=== PATIENT | female | born 1985 | race Caucasian/White ===

== ENCOUNTER 2021-03-02 08:52 | Emergency (ER) | payer BC ==
--- OUTSIDE RECORDS SUMMARY | 2021-03-02 08:55 | XMS REPORT | Continuity of Care Document ---
:1985 Author Organization [facility] t Address [address] [place] [address] Care Team Providers Name Role Phone Provider Primary Care Physician Unavailable Lab, Fam Pob I Attending Clinician Unavailable Jeffry Peña Attending Clinician Jeffry Peña Admitting Clinician Problems Condition Condition Condition Status Onset Resolution Last Treating Co mments Source Name Details Category Date Date Treatment Clinician Date FOLLOW UP Diagnosis Active 2019-04-27 Memoria 04-21 11:02:00 l FOLLOW 00:00: [place] UP 00 Active 9 [facility] OMF Diagnosis Active 2019-04-20 Mem oria 04-16 16:37:00 l OMF 00:00: Aneesh 00 Active 04/16/2019 [facility] FALL Diagnosis Active 2019-04-15 Mem oria 04-15 19:09:00 l FALL 00:00: [place] 00 Active 04/15/2019 [facility] CORNEAL Diagnosis Active 2019-04-16 Me moria ABRASION 04-15 09:33:00 l CORNEAL 00:00: Aneesh ABRASION 00 Active 04/15/2019 [facility] INJ Diagnosis Active 2019-04-16 Mem oria CONJUNCTIV 09:33:00 l A AND INJ [place] CORNEAL CONJUNCTIV ABRASION A AND W/O CORNEAL ABRASION W/O Active [facility] Bipolar Bipolar Problem Active [facility] affective affective [facility] s - disorder, disorder, Aguilar taapn current current l episode episode Outpati mixed, mixed, ent current current Clinics episode episode severity severity unspecifie unspecifie d d Seasonal Seasonal Problem [facility] allergic [facility] - rhinitis, rhinitis, Aguilar tapan unspecifie unspecifie l d trigger d trigger Outp at ent Clinics Dysthymia Dysthymia Problem Active [facility] Clinics Attention- Attention- Problem Active [facility] deficit deficit [facility] hyperactiv [facility], disorder, 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 Abnormal Abnormal Problem Active [facility] thyroid thyroid [facility] - blood test blood test Me moria l [facility] ent Clinics Hyperchole Hyperchole Problem Active [facility] sterolemia sterolemia Essie kes - Memoria l [facility] ent Clinics Lung Lung Problem Active [facility] nodule < nodule < [facility] - 6cm on CT [address] Aguilar tapan l [facility] ent Clinics Pelvic Pelvic Problem Active [facility] fluid fluid [facility] - collection collection Me moria l [facility] ent Clinics Pneumonia Pneumonia Problem Active [facility] due to due to [facility] - infectious infectious [facility] organism, organism, l unspecifie unspecifie Ou tpati d d ent laterality laterality Cl inics , , unspecifie unspecifie d part of d part of lung lung Muscle Muscle Problem Active [facility] tension tension [facility] - headache headache Memori a l [facility] ent Clinics 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 l [facility] Acquired Acquired Problem Active [facility] hypothyroi hypothyroi Essie kes - dism dism Memoria l [facility] Clinics Tobacco Tobacco Problem Active [facility] abuse abuse [facility] - [facility]oria l [facility] Carpal Carpal Problem Active [facility] tunnel tunnel [facility]ukes - 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 [facility] Migraine Migraine Problem Active [facility] without without [facility] - aura and aura and Memori a without without l status status Outpati migrainosu migrainosu en t s, not s, not Clinics intractabl intractabl e e Attention Attention Diagnosis Active [facility] deficit deficit [facility] - disorder, disorder, Aguilar tapan unspecifie unspecifie l d d Outpati hyperactiv hyperactiv en t ity ity Clinics presence presence History of Past Illness Condition Condition Condition Status Onset Resolution Last Treating Co mments Source Name Details Category Date Date Treatment Clinician Date Injury of Problem 2018-2019-04-18 2019-04-18 Memoria conjunctiv 04-15 21:39:44 21:39:44 l a and Injury 17:00: Aneesh corneal of 00 abrasion conjunctiv without a and foreign corneal body, abrasion unspecifie without d eye, foreign initial body, encounter unspecifie d eye, initial encounter 04/15/2019 04/18/2019 [facility] Fracture Problem 2018-2019-04-18 2019-04-18 Memoria of other 04-15 21:39:44 21:39:44 l specified Fracture 17:00: Her barth skull and of other 00 facial specified bones, skull and unspecifie facial d side, bones, initial unspecifie encounter d side, for closed initial fracture encounter for closed fracture 9 04/18/2019 [facility] Allergies, Adverse Reactions, Alerts Allergy Allergy Status Severity Reaction(s) Onset Inactive Treating Comm ents Source Name Type Date Date Clinician Sulfamet Propensi Active Hives 2017-09 [place] hoxazole ty to 0-27 [facility] -Trimeth adverse 00:00: st oprim reaction 00 s to drug penicill penicill Active Memori a ins ins l [place] Bactrim Adverse Active Info Not [facility] Reaction Available [facility] Social History Social Habit Start Date Stop Date Quantity Comments Source Social History 2019-04-16 2019-04-16 [facility] 00:47:43 00:47:43 Sex Assigned At [birth year] [facility] ethodist 00:00:00 00:00:00 Medications Ordered Filled Start Stop Current Ordering Indication Dosage Frequency Signature Comments Components Source Medication Medication Date Date Medication? Clinician (SIG) Name Name Amphetamine Amphetamine 2018-09 Yes Tomás [address] -Dextroamph -Dextroamph 0-04 Romo in the [facility] - et ER et ER 00:00: morning Memoria 00 l [facility] gabapentin Yes 800 mg = 1 M emoria 800 MG Oral 7-24 tab, PO, l Tablet 00:12: TID, # 90 Chicho n 00 tab, 0 Refill(s) Levofloxaci 2018- Yes 750 mg = 1 Memoria n 750 MG 7-23 tab, PO, l Oral Tablet 18:07: Q24H, X 10 Aneesh [Levaquin] 00 day, # 10 tab, 0 Refill(s) Acetaminoph Yes 1 tab, PO, Memoria en 300 MG / -23 Q6H, X 5 l Codeine 18:07: day, # 20 Honey nn Phosphate 00 tab, 0 30 MG Oral Refill(s) Tablet Bacitracin Yes 1 appl, Aguilar tapan 0.5 UNT/MG 23 LEFT EYE, l / Polymyxin 18:07: QID, # 3 He rmann B 10 UNT/MG 00 gm, 0 Ophthalmic Refill(s) Ointment Metronidazo Yes 500 mg = 1 Memoria le 500 MG 7-23 tab, PO, l Oral Tablet 18:07: Q8H, X 10 H ermann [Flagyl] day, # 30 tab, 0 Refill(s) ibuprofen Yes 800 mg = 1 Me moria 800 mg oral 7-23 tab, PO, l tablet 18:07: TID, X 10 Chicho n 00 day, # 30 tab, 0 Refill(s) Adderall XR No 30 mg, Aguilar tapan 23 Route: PO, l 14:00: Drug form: Aneesh 00 ERCAP, Daily, Dosing Weight 97.727, kg, Start date: 04/20/19 9:00:00 CDT, Duration: 30 day, Stop date: 05/19/19 9:00:00 CDT Lexapro No Notes: Memoria 7-23 (Same as: l 14:00: Lexapro) Aneesh Acetaminoph No Notes: Max Memoria en - acetaminop l 13:00: hen 4000 Aneesh 00 mg/day (4 gm/day). (Same as: Tylenol Extra Strength) Thyroxine No Notes: Memori a 7-23 Take 1 l 11:30: hour Aneesh 00 before or 2 hours after meal; Enteral feeds may interefere with the absorption of this medication . (Same as:Synthro id, Levothroid ) Ofirmev No Notes: Memoria 7- Infuse l 23:00: over 15 [place] 00 minutes Do not exceed 4gm/day of acetaminop hen MEDICATION WASTE Product Size: 1000 mg Product Wasted: ___ mg Dexamethaso No Notes: Aguilar tapan ne - Concentrat l 21:00: ion: [place] 00 4mg/ml Motrin No Notes: Memoria 04-19 (Same as: l 19:00: Motrin) "Do Not Crush" Take with food. hydromorpho No Route: IV, Memoria ne (ANES) 04-19 Drug form: l 18:20: INJ, ONCE, Stop date: 04/19/19 13:20:00 CDT glycopyrrol No Route: IV, Memoria ate (ANES) 04-19 Drug form: l 18:13: INJ, ONCE, Stop date: 04/19/19 13:13:00 CDT neostigmine No Route: IV, Memoria (ANES) 04-19 Drug form: l 18:13: INJ, ONCE, Stop date: 04/19/19 13:13:00 CDT Ativan No 2 mg, Memoria 04-19 Route: l 18:05: IVP, Drug form: INJ, ONCE, Dosing Weight 97.727, kg, PRN Anxiety, Start date: 04/19/19 13:05:00 CDT ondansetron No Route: IV, Memoria (ANES) 04-19 Drug form: l 18:03: INJ, ONCE, Stop date: 04/19/19 13:03:00 CDT Dexamethaso No Notes: Aguilar tapan ne 1 MG/ML 04-19 (dexametha l / Neomycin 18:00: sone-neomy H ermann 3.5 MG/ML / 00 carlee-polymy Polymyxin [place] [id number] 5ml SOLN) UNT/ML Shake well Ophthalmic before Suspension use. [Maxitrol] gabapentin No Notes: Memor ia 800 MG Oral 04-19 (Same as: l Tablet 18:00: Neurontin) Clindamycin No Notes: Aguilar tapan - (Same As: l 18:00: Cleocin) Lovenox No Notes: Memoria 7- (Same as: l 17:00: Lovenox) Benadryl No Notes: Memoria - (Same as: l 16:37: Benadryl) Morphine No Notes: Memoria 04-19 (Same l 16:29: as:MORPhin e Sulfate) Tramadol No Notes: Not Mem oria 04-19 to exceed l 16:29: 400mg/day. (Same As: Ultram) Tylenol No Notes: Do Memor ia 04-19 not exceed l 16:29: 4 gm/day. (Same as: Tylenol) Zofran No Notes: Memoria 04-19 (Same as: l 16:29: Zofran) MEDICATION WASTE Product Size: 4 mg Product Wasted: ___ mg dexamethaso No Route: IV, Memoria ne (ANES) 04-19 Drug form: l 16:13: INJ, ONCE, Stop date: 04/19/19 11:13:00 CDT Ondansetron No Notes: Aguilar tapan 04-19 (Same as: l 16:11: Zofran) MEDICATION WASTE Product Size: 4 mg Product Wasted: ___ mg Promethazin No Notes: Do M emoria e 04-19 not give l 16:11: IV push. (Same as: Phenergan) Hydromorpho No Notes: Aguilar tapan ne 04-19 Same as l 16:11: Dilaudid Flumazenil No Notes: Memor ia 04-19 (Same as: l 16:11: Romazicon) Naloxone No Notes: Memoria 04-19 Same as l 16:11: Narcan Acetaminoph No Notes: Max Memoria en 04-19 acetaminop l 16:11: hen 4000 mg/day (4 gm/day). (Same as: Tylenol Extra Strength) Oxycodone No Notes: Memori a Hydrochlori 04-19 (Same as: l de 5 MG 16:11: Roxicodone Herm gurinder Oral Tablet 00 ) fentaNYL No Route: IV, Mem oria (ANES) 04-19 Drug form: l 16:02: INJ, ONCE, [place] Stop date: 04/19/19 11:02:00 CDT rocuronium No Route: IV, M emoria (ANES) 04-19 Drug form: l 16:02: INJ, ONCE, Aneesh Stop date: 04/19/19 11:02:00 CDT propofol No Route: IV, Mem oria (ANES) 04-19 Drug form: l 16:02: INJ, ONCE, [place] 00 Stop date: 04/19/19 11:02:00 CDT lidocaine No Route: IV, Me moria (ANES) 04-19 Drug form: l 16:02: INJ, ONCE, Aneesh 00 Stop date: 04/19/19 11:02:00 CDT midazolam No Route: IV, Me moria (ANES) 04-19 Drug form: l 15:52: SOLN, Aneesh 00 ONCE, Stop date: 04/19/19 10:52:00 CDT Cleocin No Route: IV, Aguilar tapan Phosphate 04-19 Drug form: l (ANES) 900 15:19: INJ, Start H ermann mg 00 date: 04/19/19 10:19:00 CDT, Stop date: 04/19/19 11:19:00 CDT Lactated No Route: IV, Mem oria Ringers 04-19 Total l Injection 15:02: Volume: Honey nn IV (ANES) 00 1,000, 1000 mL Start date: 04/19/19 10:02:00 CDT, Stop date: 04/19/19 11:02:00 CDT Ofloxacin 3 Yes 1 drp, Aguilar tapan MG/ML 04-16 LEFT EYE, l Ophthalmic 16:17: QID, X 7 Her barth Solution 00 day, # 10 mL, 0 Refill(s) Ofloxacin No 1 drp, Memori a 04-16 LEFT EYE, l 16:08: QID, 0 [place] 00 Refill(s) ciprofloxac Yes 500 mg = 1 Memoria in 500 mg 7-19 tab, PO, l oral tablet 16:08: Q12H, X 5 H ermann day, # 10 tab, 0 Refill(s) Metronidazo Yes 500 mg = 1 Memoria le 500 MG 7-19 tab, PO, l Oral Tablet 16:08: TID, X 5 He rmann day, # 15 tab, 0 Refill(s) ibuprofen Yes 800 mg = 1 Me moria 800 mg oral 7-19 tab, PO, l tablet 16:08: Q6H, PRN Aneesh 00 Pain Score 1-3, X 5 day, # 20 tab, 0 Refill(s) Acetaminoph Yes 1 tab, PO, Memoria en 300 MG / 7-19 Q6H, PRN l Codeine 16:08: pain, X 7 Honey nn Phosphate 00 day, # 28 30 MG Oral tab, 0 Tablet Refill(s) Flagyl No Notes: Memoria 7-19 (Same as: l 14:00: Flagyl) Aneesh 00 Take with food/ avoid alcohol Thyroxine No Notes: Memori a 7-19 Take 1 l 14:00: hour [place] 00 before or 2 hours after meal; Enteral feeds may interefere with the absorption of this medication . (Same as:Synthro id, Levothroid ) dexamethaso No Notes: Aguilar tapan ne 04-16 Concentrat l 06:00: ion: [place] 00 4mg/ml Dexamethaso No Notes: Memoria ne -19 MEDICATION l 05:00: WASTE Product Size: 10 mg Product Wasted: ___ mg Acetaminoph No Notes: Max Memoria en -19 acetaminop l 05:00: hen 4000 Aneesh 00 mg/day (4 gm/day). (Same as: Tylenol Extra Strength) codeine No 30 mg, 1 Memori a sulfate 7-19 tab, l 02:59: Route: PO, [place] 00 Drug form: TAB, Q4H, Dosing Weight 108.006, kg, PRN Pain Score 7-10, Start date: 04/15/19 21:59:00 CDT, Duration: 30 day, Stop date: 05/15/19 21:58:00 CDT, 0 Zofran No Notes: Memoria - (Same as: l 02:26: Zofran) MEDICATION WASTE Product Size: 4 mg Product Wasted: ___ mg Ofloxacin No Notes: Memori a 04-16 (Same as: l 02:00: Ocuflox) Non-formul rach item Cipro No Notes: May Memori a - interfere l 02:00: w/enteral feedings - Take 1 hr before or 2 hrs after antacids, dairy pdt & minerals. On empty stomach. gabapentin Yes 800 mg = 1 M emoria 800 MG Oral 7-19 tab, PO, l Tablet 01:50: TID Escitalopra Yes 20 mg = 1 M emoria m 20 MG 7-19 tab, PO, l Oral Tablet 00:54: Daily, # He rmann [Lexapro] 00 30 tab, 0 Refill(s) 24 HR Yes 30 mg = 1 Memoria Amphetamine 7-19 cap, PO, l aspartate 00:54: Daily, # Herm gurinder 7.5 MG / 00 30 cap, 0 Amphetamine Refill(s) Sulfate 7.5 MG / Dextroamphe tamine saccharate 7.5 MG / Dextroamphe tamine Sulfate 7.5 MG Extended Release Capsule [Adderall] levothyroxi Yes 75 Memori a ne 75 mcg 7-19 microgram l (0.075 mg) 00:54: = 1 tab, Her barth oral tablet 00 PO, Daily, # 30 tab, 0 Refill(s) Tramadol No Notes: Not Mem oria 7-18 to exceed l 22:22: 400mg/day. [place] 00 (Same As: Ultram) Acetaminoph No Notes: Max Memoria en 7-18 acetaminop l 22:22: hen 4000 [place] 00 mg/day (4 gm/day). (Same as: Tylenol Extra Strength) Ibuprofen No Notes: Memori a 7-18 (Same as: l 22:22: Motrin) Aneesh 00 "Do Not Crush" Take with food. Morphine No 4 mg, Memoria -18 Route: l 20:54: IVP, ONCE, [place] 00 Dosing Weight 97.5, kg, Start date: 04/15/19 15:54:00 CDT, Stop date: 04/15/19 15:54:00 CDT Ofloxacin 3 Yes 1 drp, Aguilar tapan MG/ML 04-15 LEFT EYE, l Ophthalmic 19:40: QID, X 7 Her barth Solution 00 day, # 10 mL, 0 Refill(s) Zofran No Notes: Memoria -18 (Same as: l 18:53: Zofran) [place] MEDICATION WASTE Product Size: 4 mg Product Wasted: ___ mg Morphine No Notes: Memoria -18 (Same l 18:53: as:MORPhin Aneesh 00 e Sulfate) Proparacain No Notes: Aguilar tapan e -18 (Same as: l hydrochlori 18:12: Proparacai [place] de 5 MG/ML 00 ne) Ophthalmic Solution Vital Signs Vital Name Observation Time Observation Value Comments Source Systolic (mm Hg) 2019-05-11 15:31:00 Aguilar rial [place] Diastolic (mm Hg) 2019-05-11 15:31:00 [facility] orial [place] Heart Rate 2019-05-11 15:31:00 [facility] [place] Respitory Rate 2019-05-11 15:31:00 Memori al [place] Weight 2019-05-11 15:31:00 [facility] [place] Systolic (mm Hg) 2019-04-27 14:40:00 Aguilar rial [place] Diastolic (mm Hg) 2019-04-27 14:40:00 [facility] orial [place] Heart Rate 2019-04-27 14:40:00 [facility] Aneesh Respitory Rate 2019-04-27 14:40:00 [facility] al [place] Height 2019-04-27 14:40:00 160.02 cm [facility] Aneesh Weight 2019-04[facility]27 [facility] 2019-04-27 14:40:00 [facility] al Aneesh Respitory Rate 2019-04-20 15:53:00 Memori al [place] Systolic (mm Hg) 2019-04-20 15:53:00 Aguilar rial [place] Diastolic (mm Hg) 2019-04-20 15:53:00 Mem orial [place] Temperature Oral (F) 2019-04-20 15:53:00 98 F Memorial Aneesh Heart Rate 2019-04-20 15:53:00 Memorial Aneesh Systolic (mm Hg) 2019-04-20 11:37:00 Aguilar rial Aneesh Diastolic (mm Hg) 2019-04-20 11:37:00 Mem orial [place] Respitory Rate 2019-04-20 11:37:00 Memori al Aneesh Heart Rate 2019-04-20 11:37:00 Memorial Aneesh Temperature Oral (F) 2019-04-20 11:37:00 97.7 F [facility] [place] Respitory Rate 2019-04-20 09:55:00 Memori al [place] Heart Rate 2019-04-20 09:55:00 Memorial Aneesh Temperature Oral (F) 2019-04-20 09:55:00 98.4 F Memorial Aneesh Systolic (mm Hg) 2019-04-20 09:55:00 Aguilar rial [place] Diastolic (mm Hg) 2019-04-20 09:55:00 Mem orial [place] Weight 2019-04-19 14:21:00 [facility] [place] Height 2019-04-19 14:21:00 160.02 cm Memorial Aneesh BMI Calculated 2019-04-19 14:21:00 Memori al [place] Heart Rate 2019-04-16 12:36:00 [facility] [place] Temperature Oral (F) 2019-04-16 12:36:00 98.2 F [facility] [place] Systolic (mm Hg) 2019-04-16 12:36:00 Aguilar rial [place] Diastolic (mm Hg) 2019-04-16 12:36:00 Mem orial [place] Respitory Rate 2019-04-16 12:36:00 Memori al [place] Temperature Oral (F) 2019-04-16 09:11:00 97.3 F [facility] [place] Respitory Rate 2019-04-16 09:11:00 Memori al Aneesh Heart Rate 2019-04-16 09:11:00 [facility] [place] Systolic (mm Hg) 2019-04-16 09:11:00 Aguilar rial Aneesh Diastolic (mm Hg) 2019-04-16 09:11:00 Mem orial [place] Temperature Oral (F) 2019-04-16 04:34:00 97.7 F [facility] [place] Heart Rate 2019-04-16 04:34:00 Memorial Aneesh Respitory Rate 2019-04-16 04:34:00 Memori al Aneesh Systolic (mm Hg) 2019-04-16 04:34:00 Aguilar rial [place] Diastolic (mm Hg) 2019-04-16 04:34:00 Mem orial Aneesh Height 2019-04-16 00:51:00 160.02 cm Memorial Aneesh Weight 2019-04-16 00:51:00 Memorial Aneesh BMI Calculated 2019-04-16 00:51:00 Memori al Aneesh BMI Calculated 2019-04-15 17:38:00 Memori al [place] Weight 2019-04-15 17:38:00 [facility] [place] Height 2019-04-15 17:38:00 160.02 cm Memorial Aneesh Procedures This patient has no known procedures. Plan of Care Planned Activity Planned Date Details Comments Source Future Scheduled 2021-04-29 INFLUENZA VACCINE [place] [facility] 00:00:00 [code = INFLUENZA VACCINE] Future Scheduled 2008 Screening for [facility] thodist Test 00:00:00 malignant neoplasm of cervix (procedure) [code = 409187998] Future Scheduled 2005 Hepatitis C [place] [facility] Test 00:00:00 screening (procedure) [code = 185858891] Future Scheduled 1999 COVID-19 VACCINE (1) Rusty briggsn [facility]ars[facility] Test 00:00:00 [code = COVID-19 VACCINE (1)] Encounters Start End Encounter Admission Attending Care Care Encounter Source Date/Time Date/Time Type Type Clinicians Facility Department ID 2020-04-17 2020-04-17 Laboratory Lab, Adc [facility] [id number] 16:20:00 16:40:00 Only Fam [facility] [id number] [place] [id number] Professio [id number] nal 0[address] 2020-04-15 2020-04-16 Laboratory Lab, Adc [facility] [id number] 10:20:00 13:48:00 Only Fam Pob I Health [id number] [place] [id number] [facility] [id number] nal 044 Office [address] One 2019-07-02 2019-07-02 [facility] [id number] [facility] 16:35:00 16:35:00 t [facility] Outpati ent Clinics 2019-07-02 2019-07-02 [facility] [id number] 14:11:00 14:11:00 t [facility] Outpati ent Clinics 2019-06-03 2019-06-03 [facility] [id number] 15:40:00 15:40:00 t [facility] Outpati ent Clinics 2019-04-27 2019-05-26 Outpatient Casey [facility] [id number] 09:18:00 23:59:00 Fei 00 Mtanios 2019-05-24 2019-05-24 [facility] [id number] 08:02:00 08:02:00 t [facility] Outpati ent Clinics 2019-05-18 2019-05-18 [facility] [id number] 07:36:00 07:36:00 t [facility] Outpati ent Clinics 2019-04-27 2019-04-27 [facility] [id number] 16:25:00 16:25:00 t [facility] Outpati ent Clinics 2019-04-27 2019-04-27 Outpatient [facility] [id number] [facility] 09:18:00 09:18:00 2019-04-19 2019-04-20 Outpatient Casey [facility] [id number] 13:01:00 19:45:00 Fei 01 Mtanios 2019-04-19 2019-04-19 Inpatient U [facility] [id number] [facility] 13:01:00 08:25:00 2019-04-15 2019-04-16 Outpatient Casey [facility] [id number] 12:35:06 13:06:00 Fei 00 Mtanios 2019-04-15 2019-04-15 Outpatient E [facility] [id number] [facility] 17:22:00 17:22:00 2019-04-15 2019-04-15 [facility] [id number] 08:20:00 08:20:00 [facility] 2019-03-22 2019-03-22 [facility] [id number] 10:03:00 10:03:00 t [place] [employer] [facility] Medicine l Medicine Outpati ent Clinics 2019-03-21 2019-03-21 [facility] [id number] 15:45:00 15:45:00 [facility] 2019-03-21 2019-03-21 [facility] [id number] 15:42:00 15:42:00 t Magno Nair [facility] l Medicine Outpati ent Clinics 2019-03-18 2019-03-18 [facility] [id number] 10:42:00 10:42:00 t [place] [employer] [facility] Medicine l Medicine Outpati ent Clinics 2019-03-16 2019-03-16 [facility] [id number] [facility] 17:20:00 17:20:00 t Loyalherminio Nair [facility] Medicine l Medicine Outpati ent Clinics 2019-03-15 2019-03-15 [facility] [id number] 13:20:00 13:20:00 t Magno Nair [facility] Medicine l Medicine Outpati ent Clinics 2019-02-08 2019-02-08 [facility] [id number] 10:11:00 10:11:00 t Magno Kiran [facility] Medicine l Medicine Outpati ent Clinics 2019-02-08 2019-02-08 [facility] [id number] 09:05:00 09:05:00 [facility] 2019-01-08 2019-01-08 [facility] [id number] 15:19:00 15:19:00 [facility] 2018-12-29 2018-12-29 [facility] [id number] 17:17:00 17:17:00 t Magno Krian [facility] Medicine l Medicine Outpati ent Clinics 2018-12-29 2018-12-29 [facility] [id number] 16:40:00 16:40:00 [facility] 2018-12-14 2018-12-14 [facility] [id number] 09:57:00 09:57:00 [facility] 2018-12-08 2018-12-08 [facility] [id number] [facility] 14:00:00 14:00:00 [facility] 2018-11-06 2018-11-06 [facility] [id number] 12:23:00 12:23:00 [facility] 2018-11-06 2018-11-06 [facility] [id number] 11:04:00 11:04:00 t Magno Kiran [facility] Medicine l Medicine Outpati ent Clinics 2018-10-08 2018-10-08 [facility] [id number] 10:20:00 10:20:00 [facility] 2018-10-02 2018-10-02 [facility] [id number] 17:40:00 17:40:00 [facility] 2018-09-07 2018-09-07 [facility] [id number] 15:00:00 15:00:00 t [facility] Medicine Outpati ent Clinics 2018-07-13 2018-07-13 [facility] [id number] 08:00:00 08:00:00 t Magno cristo [facility] Outpati ent Clinics 2018-07-06 2018-07-06 [facility] [id number] [facility] 13:06:00 13:06:00 t [facility] Medicine Outpati ent Clinics 2018-06-12 2018-06-12 [facility] [id number] 13:05:00 13:05:[address] [facility] Medicine Outpati ent Clinics 2018-06-11 2018-06-11 [facility] [id number] [facility] 15:40:00 15:40:00 t [facility] Medicine Outpati ent Clinics 2018-03-16 2018-03-16 [facility] [id number] 11:00:00 11:00:[address] [facility] Outpati ent Clinics Results Test Description Test Time Test Comments Results Result Comments Source HEM[facility] 2019-04-15 0[facility]1 [facility] 2019[facility] 2019-[facility]-15 [facility] 2019-04-15 23:13:00 Test Item Value Reference Range Interpretation Comme nts PTT (test code = PTT) 23.5 s 22.9-35.8 [facility]93 23:13:00 Test Item Value Reference Range Interpretation Comments PT (test code = PT) 12.3 s 12.0-14.7 [facility]OYIYIXNLHK1299-29-32 23:13:00 Test Item Value Reference Range Interpretation Comments INR (test code = INR) 0.93 1 0.85-1.17 [facility]PPNRRHNENQ2183-93-83 23:13:[facility].0[facility] 2019-[facility]15 23:13:0014.9[facility] ZcfnhgmQRWXLJLCRZ8327-82-42 23:13:0011.1[facility] MnrywgxEXXAEYBACV9056-49-09 23:13:004.86[facility] ObqadsiJXWUFDERIY7774-12-63 23:13:0013.7[facility] YqhujjzGEQZQWJBFD3585-07-49 23:13:11641Fbkrkhyl [place] BECCFVBMAD3406-61-30 23:13:0033.1[facility] GhqwjeyFBNFOFJAWB9150-49-77 23:13:00 Test Item Value Reference Range Interpretation Comments MCH (test code = MCH) 30.8 pg 27.0-31.0 [facility] CmmzimjUWMDSGPXLY3746-58-59 23:13:0092.8[facility] 2019-04-15 23:13:0045.1[facility] [id number] 23:13:00 Negative (04/15/19 6:13 PM)[facility] LkmtxzoYZECCMQHELUT6085-19-43 23:13:0015.2 [facility] AmjtzmvBZFKFITGVDXO9467-58-96 23:13:29358[facility]annELECTROLYTES 2019-04-15 23:13:0026[facility] YpebybzXEPIHONXJFDA8690-27-23 23:13:009.5[facility] QnlntqhAKMNSKYFADCL1064-88-80 23:13:0010[facility] JjhauzcPYMBWTZWPTGP6081-69-47 23:13:004.2[facility] NguydufLUTTJJTAASAF8858-60-85 23:13:87645Byuapgqg Aneesh FSVBONHIBITB4624-21-02 23:13:000.72[facility] KgvhrytFSVZGIUZCZKA5365-42-84 23:13:34063Rjlkabdi LcneaglJXZBXEZQTFES0184-51-03 23:13:41068Gsltajcs [place] IPMTMCNUOR8437-64-61 23:13:000.7[facility] OuepecuNZRGKXNMEE6406-85-41 23:13:00 18.0[facility] XobdyxzHBKFRFCJHK1683-68-85 23:13:0075.5[facility] 2019-04-15 23:13:005.1[facility] WfierlsEJMAJUSDZF6972-18-88 23:13:000.6[facility] Aneesh
[2021-03-02] MEDS ORDERED: CLINDAMYCIN 900MG/D5W 900 MG/50 ML IVPB IV ONE (11:50)
[2021-03-02] MEDS ORDERED: MORPHINE 4 MG/ML SYR ONE (11:50)
[2021-03-02] MEDS ORDERED: NA CHLORIDE 0.9% 500 ML ONE (11:50)
[2021-03-02] MEDS ORDERED: ONDANSETRON 4 MG/2 ML VIAL ONE (11:50)
[2021-03-02 12:10] LABS: Absolute Lymphocytes (CBC) 1.8 K/uL (0.7-4.9); Basophils % 0.4 % (0-1.3); Hematocrit 38.2 % (36.0-45.0); MPV 8.9 fL (7.6-11.3); RBC Red Blood Cell Count 4.31 M/uL (3.86-4.86)
[2021-03-02 12:27] LABS: Potassium 3.7 mmol/L (3.5-5.1)
--- NOTE | 2021-03-02 12:32 | RAD REPORT ---
EXAM DESCRIPTION: US - Extremity Nonvascular Complete - 03/02/2021 11:33 am FINDINGS: Limited sonographic evaluation performed of the left mid to lower back soft tissues. Patie nt has an area of infectious/inflammatory findings evident on physical exam. Sonographic evaluation of the area of concern shows edematous tissue but no abscess or drainable flui d collection identifiable.
[2021-03-02] MEDS ORDERED: HYDROCODONE/APAP 10/325 TAB ONE (13:38)
--- NOTE | 2021-03-02 14:13 | ER ---
Nurse's Notes [facility] Name: Addis Mcclure Age: 35 yrs Sex: Female : 1985 Arrival Date: 03/02/2021 Time: 08:56 Bed 27 Private MD: Diagnosis: Cellulitis of back [any part except buttock] Presentation: 03/02 09:03 Chief complaint: Patient states: "I have this abscess that is raised and hot to the jd3 touch on my lower back that is really hurting.". Coronavirus screen: At this time, the client does not indicate any symptoms associated with coronavirus-19. Ebola Screen: Patient negative for fever greater than or equal to 101.5 degrees Fahrenheit, and additional compatible Ebola Virus Disease symptoms. Initial Sepsis Screen: Does the patient meet any 2 criteria? No. Patient's initial sepsis screen is negative. Does the patient have a suspected source of infection? No. Patient's initial sepsis screen is negative. Risk Assessment: Do you want to hurt yourself or someone else? Patient reports no desire to harm self or others. Onset of symptoms was February 25, 2021. 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 - Social history:: Smoking status: Patient/guardian denies using tobacco, the patient reports quitting approximately 3 years ago. Screenin:36 Abuse screen: Denies threats or abuse. Has been threatened or abused. Nutritional ph screening: No deficits noted. Tuberculosis screening: No symptoms or risk factors identified. Fall Risk None identified. Assessment: 12:17 General: Appears in no apparent distress. uncomfortable, Behavior is calm, cooperative, ph appropriate for age, Reports chills for fever for. Pain: Complains of pain in left low back. Neuro: Level of Consciousness is awake, alert, obeys commands, Oriented to person, place, time, situation. Cardiovascular: No deficits noted. Respiratory: Airway is patent Respiratory effort is even, unlabored. GI: No signs and/or symptoms were reported involving the gastrointestinal system. Derm: Skin is intact, Skin is pink, warm \\T\\ dry. Abscess located on left low back has no drainage, is hot to touch, is red. Musculoskeletal: Circulation, motion, and sensation intact. Range of motion: intact in all extremities. 13:30 Reassessment: Patient appears in no apparent distress at this time. Patient and/or ph family updated on plan of care and expected duration. Pain level reassessed. Patient is alert, oriented x 3, equal unlabored respirations, skin warm/dry/pink. 14:29 Reassessment: Patient appears in no apparent distress at this time. Patient and/or ph family updated on plan of care and expected duration. Pain level reassessed. Patient is alert, oriented x 3, equal unlabored respirations, skin warm/dry/pink. PT d/c home w/ prescriptions. Vital Signs: 09:06 BP 140 / 79; Pulse 126; Resp 18 S; Temp 99.4(TE); Pulse Ox 99% on R/A; Weight 108.86 kg jd3 (R); Height 5 ft. 3 in. (160.02 cm) (R); Pain 10/10; 11:55 BP 129 / 89; Pulse 90; Resp 18; Pulse Ox 98% on R/A; ph 14:28 BP 128 / 70; Pulse 81; Resp 18; Temp 98.1; Pulse Ox 99% on R/A; ph 09:06 Body Mass Index 42.51 (108.86 kg, 160.02 cm) jd3 ED Course: 08:56 Patient arrived in ED. mr 09:04 Triage completed. jd3 09:07 Arm band placed on. jd3 10:36 Karey Thompson, RN is Primary Nurse. ph 10:37 Patient has correct armband on for positive identification. Bed in low position. Call ph light in reach. Side rails up X 1. Pulse ox on. NIBP on. Door closed. Noise minimized. Warm blanket given. 10:51 Contreras Hallman MD is Attending Physician. kdr 11:33 Extremity Nonvascular Complete In Process Unspecified. EDMS 11:35 No provider procedures requiring assistance completed. Inserted saline lock: 22 gauge ph in left hand, using aseptic technique. 14:28 IV discontinued, intact, bleeding controlled, No redness/swelling at site. Pressure ph dressing applied. Administered Medications: 11:40 Drug: Zofran (Ondansetron) 4 mg Route: IVP; Site: left hand; ph 12:44 Follow up: Response: No adverse reaction ph 11:42 Drug: NS 0.9% 500 ml Route: IV; Rate: bolus; Site: left hand; ph 12:45 Follow up: Response: No adverse reaction; IV Status: Completed infusion; IV Intake: ph 500ml 11:42 Drug: morphine 4 mg Route: IVP; Site: left hand; ph 12:45 Follow up: Response: No adverse reaction; Pain is decreased; RASS: Alert and Calm (0) ph 11:56 Drug: Clindamycin 900 mg Route: IVPB; Infused Over: 30 mins; Site: left hand; ph 12:30 Follow up: Response: No adverse reaction; IV Status: Completed infusion; IV Intake: 50mlph 13:19 Drug: [place] (HYDROcodone-acetaminophen) 10 mg-325 mg 1 tabs Route: PO; ph 14:27 Follow up: Response: No adverse reaction; Pain is decreased ph Intake: 12:30 IV: 50ml; Total: 50ml. ph 12:45 IV: 500ml; Total: 550ml. ph Outcome: 14:13 Discharge ordered by . kdr 14:28 Discharged to home ambulatory, with significant other. ph 14:28 Condition: good 14:28 Discharge instructions given to patient, Instructed on discharge instructions, follow up and referral plans. medication usage, Demonstrated understanding of instructions, follow-up care, medications, Prescriptions given X 2. 14:29 Patient left the ED. ph Signatures: Dispatcher [employer] EDMS Contreras Hallman MD MD kdr Rivera, Karey Woodward RN RN ph Bentley Martin RN RN jd3 Corrections: (The following items were deleted from the chart) 09:07 09:03 Acuity: RAKESH 3 jd3 jd3
--- NOTE | 2021-03-02 14:14 | EDPHYS ---
Physician Documentation [facility] Name: Addis Mcclure Age: 35 yrs Sex: Female : 1985 Arrival Date: 03/02/2021 Time: 08:56 Bed 27 Private MD: ED Physician Contreras Hallman HPI: 03/02 11:04 This 35 yrs old Female presents to ER via Ambulatory with complaints of kdr Abscess. 11:04 The patient presents with an abscess of the left low back, The patient presents with kdr cellulitis of the left low back. Description: erythematous, warm. Onset: The symptoms/episode began/occurred gradually, 1 week(s) ago. Possible cause(s): unknown. Associated signs and symptoms: The patient has no apparent associated signs or symptoms. Modifying factors: the symptoms are alleviated by nothing, the symptoms are aggravated by movement, squeezing the lesion and expressing the contents, touching. Severity of symptoms: At their worst the symptoms were moderate, in the emergency department the symptoms are unchanged. The patient has not experienced similar symptoms in the past. The patient has not recently seen a physician. 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 - Social history:: Smoking status: Patient/guardian denies using tobacco, the patient reports quitting approximately 3 years ago. ROS: 11:04 Constitutional: Negative for fever, chills, and weight loss, Eyes: Negative for injury, kdr pain, redness, and discharge, ENT: Negative for injury, pain, and discharge, Neck: Negative for injury, pain, and swelling, Cardiovascular: Negative for chest pain, palpitations, and edema, Respiratory: Negative for shortness of breath, cough, wheezing, and pleuritic chest pain, Abdomen/GI: Negative for abdominal pain, nausea, vomiting, diarrhea, and constipation, Back: Negative for injury and pain, : Negative for injury, bleeding, discharge, and swelling, MS/Extremity: Negative for injury and deformity, Neuro: Negative for headache, weakness, numbness, tingling, and seizure activity. Psych: Negative for depression, anxiety, suicide ideation, homicidal ideation, and hallucinations, Allergy/Immunology: Negative for hives, rash, and allergies, Endocrine: Negative for neck swelling, polydipsia, polyuria, polyphagia, and marked weight changes, Hematologic/Lymphatic: Negative for swollen nodes, abnormal bleeding, and unusual bruising. 11:04 Skin: Positive for cellulitis, of the left low back, Negative for abrasions, avulsion, burn, diaphoresis, discoloration, ecchymosis. Exam: 11:04 Constitutional: This is a well developed, well nourished patient who is awake, alert, kdr and in no acute distress. Head/Face: Normocephalic, atraumatic. Eyes: Pupils equal round and reactive to light, extra-ocular motions intact. Lids and lashes normal. Conjunctiva and sclera are non-icteric and not injected. Cornea within normal limits. Periorbital areas with no swelling, redness, or edema. Neck: Trachea midline, no thyromegaly or masses palpated, and no cervical lymphadenopathy. Supple, full range of motion without nuchal rigidity, or vertebral point tenderness. No Meningismus. Chest/axilla: Normal chest wall appearance and motion. Nontender with no deformity. No lesions are appreciated. Cardiovascular: Regular rate and rhythm with a normal S1 and S2. No gallops, murmurs, or rubs. Normal PMI, no JVD. No pulse deficits. Respiratory: Lungs have equal breath sounds bilaterally, clear to auscultation and percussion. No rales, rhonchi or wheezes noted. No increased work of breathing, no retractions or nasal flaring. Abdomen/GI: Soft, non-tender, with normal bowel sounds. No distension or tympany. No guarding or rebound. No evidence of tenderness throughout. Back: No spinal tenderness. No costovertebral tenderness. Full range of motion. MS/ Extremity: Pulses equal, no cyanosis. Neurovascular intact. Full, normal range of motion. Neuro: Awake and alert, GCS 15, oriented to person, place, time, and situation. Cranial nerves II-XII grossly intact. Motor strength 5/5 in all extremities. Sensory grossly intact. Cerebellar exam normal. Normal gait. Psych: Awake, alert, with orientation to person, place and time. Behavior, mood, and affect are within normal limits. 11:04 Skin: Appearance: Color: erythematous, pale, petechiae, not noted, ecchymosis, not noted, flushing, not noted. Vital Signs: 09:06 BP 140 / 79; Pulse 126; Resp 18 S; Temp 99.4(TE); Pulse Ox 99% on R/A; Weight 108.86 kg jd3 (R); Height 5 ft. 3 in. (160.02 cm) (R); Pain 10/10; 11:55 BP 129 / 89; Pulse 90; Resp 18; Pulse Ox 98% on R/A; ph 14:28 BP 128 / 70; Pulse 81; Resp 18; Temp 98.1; Pulse Ox 99% on R/A; ph 09:06 Body Mass Index 42.51 (108.86 kg, 160.02 cm) jd3 MDM: 11:04 Data reviewed: vital signs, nurses notes. Counseling: I had a detailed discussion with kdr the patient and/or guardian regarding: the historical points, exam findings, and any diagnostic results supporting the discharge/admit diagnosis, lab results, radiology results. 14:13 Patient medically screened. kdr 03/02 11:03 Order name: CBC with Diff kdr 03/02 11:03 Order name: Chem 7 kdr 03/02 11:03 Order name: CBC with Automated Diff; Complete Time: 13:00 EDMS 03/02 11:03 Order name: Basic Metabolic Panel; Complete Time: 13:00 EDMS 04 11:32 Order name: Extremity Nonvascular Complete; Complete Time: 13:00 EDMS Administered Medications: 11:40 Drug: Zofran (Ondansetron) 4 mg Route: IVP; Site: left hand; ph 12:44 Follow up: Response: No adverse reaction ph 11:42 Drug: NS 0.9% 500 ml Route: IV; Rate: bolus; Site: left hand; ph 12:45 Follow up: Response: No adverse reaction; IV Status: Completed infusion; IV Intake: ph 500ml 11:42 Drug: morphine 4 mg Route: IVP; Site: left hand; ph 12:45 Follow up: Response: No adverse reaction; Pain is decreased; RASS: Alert and Calm (0) ph 11:56 Drug: Clindamycin 900 mg Route: IVPB; Infused Over: 30 mins; Site: left hand; ph 12:30 Follow up: Response: No adverse reaction; IV Status: Completed infusion; IV Intake: 50mlph 13:19 Drug: [place] (HYDROcodone-acetaminophen) 10 mg-325 mg 1 tabs Route: PO; ph 14:27 Follow up: Response: No adverse reaction; Pain is decreased ph Disposition: 03/02/21 14:13 Discharged to Home. Impression: Cellulitis of back [any part except buttock]. - Condition is Stable. - Discharge Instructions: Cellulitis, Adult, Jixs-dg-Nzxp. - Prescriptions for Keflex 500 mg Oral Capsule - take 1 capsule by ORAL route every 8 hours for 10 days; 30 capsule. Tramadol 50 mg Oral Tablet - take 1 tablet by ORAL route every 8 hours as needed; 12 tablet. - Medication Reconciliation Form, Thank You Letter, Antibiotic Education, Prescription Opioid Use, Work release form form. - Follow up: Private Physician; When: 2 - 3 days; Reason: If symptoms return, Further diagnostic work-up, Recheck today's complaints, Continuance of care, Re-evaluation by your physician. - Problem is new. - Symptoms have improved. Signatures: Dispatcher [employer] [facility] Contreras Hallman MD MD kdr Karey Thompson RN RN ph Bentley Martin RN RN jd3 Corrections: (The following items were deleted from the chart) 11:32 11:05 Extrmty Nonvasular Limited+US.RAD.BRZ ordered. [facility] 14:29 14:13 03/02/2021 14:13 Discharged to Home. Impression: Cellulitis of back [any part ph except buttock]. Condition is Stable. Forms are Medication Reconciliation Form, Thank You Letter, Antibiotic Education, Prescription Opioid Use. Follow up: Private Physician; When: 2 - 3 days; Reason: If symptoms return, Further diagnostic work-up, Recheck today's complaints, Continuance of care, Re-evaluation by your physician. Problem is new. Symptoms have improved. kdr
[2021-03-02 14:55] VITALS: BP 128/70; TEMP 98.1; O2SAT 99
== END 2021-03-02 14:29 | disposition home or self-care (01) ==
LOC: ER 08:52
DX: L03.312 Cellulitis of back [any part except buttock and flank] (principal); Z87.891 Personal history of nicotine dependence; F41.9 Anxiety disorder, unspecified; F31.9 Bipolar disorder, unspecified; M54.9 Dorsalgia, unspecified; G89.29 Other chronic pain
CPT/HCPCS: 96365; 85025; 80048; 36415; 76881; 96375; 99284; J7040; J2405

== ENCOUNTER 2022-03-11 18:39 | Emergency (ER) | payer BC ==
--- OUTSIDE RECORDS SUMMARY | 2022-03-11 18:41 | XMS REPORT | Clinical Summary ---
:1985 Author Organization [facility] MD [facility] Center Address [address] [place] [address] Care Team Providers Name Role Phone MD April Primary Care Provider MD López Primary Care Provider MD Nikko Primary Care Provider MD Gene Primary Care Provider Merline Marquis MD Unavailable Allergies No known active allergies Medications Medication Sig Dispensed Refills Start Date End Date Status ARIPiprazole (ABILIFY) 5 daily. 0 12/13/2021 Active mg tablet dextroamphetamine-amphet daily. 0 Active amine (Adderall XR) 30 mg 24 hr capsule gabapentin (NEURONTIN) 3 (three) times 0 12/13/2021 Active 300 mg capsule a day. iron-vit C-vit [id number] daily. 0 10/15/2021 Active acid (Iron 100 Plus) [id number] tn-nh-nrd-mg tab LORazepam (ATIVAN) 0.5 as needed. 0 02/27/2021 Active mg tablet venlafaxine (EFFEXOR-XR) daily. 0 11/27/2021 Active 37.5 mg 24 hr capsule venlafaxine 150 MG tr24 daily. 0 10/09/2021 Active esomeprazole (NexIUM) 40 Take 40 mg by 0 Active MG capsule mouth as needed. cholecalciferol, vitamin Take 400 Units 0 Active D3, (VITAMIN D3) 5,000 by mouth daily. 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 12/21/2021 Ancillary Radiology Zina Luo, Benign neopl asm of Procedure [employer] thyroid gland 12/21/2021 Office Visit Endocrinology López, Thyroid nodule MD Elizabeth (Primary Dx) Alfie Mills MD 12/21/2021 NPR Patient Access López, Services MD Elizabeth 12/21/2021 Travel 12/19/2021 Ancillary Radiology Alfie Mills MD Cancer Procedure 12/14/2021 Telephone Radiology Mayra Alamo MA 12/07/2021 Telephone Radiology Dana Travis MA 12/04/2021 Orders Only Endocrinology Zina Luo, Benign neop lasm of [employer] thyroid gland (Primary Dx) 11/26/2021 Pre-Evaluation Endocrinology Marbella Doyle, RN after 03/11/2021 Surgical History Surgery Date Site/Laterality Comments TUBAL LIGATION 09/29/2008 - 09/28/2009 Family History Medical History Relation Name Comments Breast cancer Maternal Aunt Thyroid cancer Maternal Aunt Melanoma Maternal Grandfather Vaginal cancer Paternal Aunt Lung cancer Paternal Uncle -Other cancer Son Relation Name Status Comments Maternal Aunt Maternal Grandfather Paternal Aunt Paternal Uncle Son Social History Tobacco Use Types Packs/Day Years Used Date Former Smoker Smokeless Tobacco: Former User Q uit: 2020 Comments: smoked since age 15 or 16 Alcohol Use Standard Drinks/Week Comments Not Currently 0 (1 standard drink = 0.6 oz pure alcoho l) Sex Assigned at Date Recorded Female 12/05/2021 11:07 AM [employer] Job Start Date Occupation Industry Not on file Not on file Not on file Obstetrics History Last Filed Vital Signs Vital Sign Reading Time Taken Comments Blood Pressure 126/73 12/21/2021 9:11 AM CDT Pulse 125 12/21/2021 9:11 AM CDT Temperature 37 C (98.6 F) 12/21/2021 9:11 AM CDT Respiratory Rate 16 12/21/2021 9:11 AM CDT Oxygen Saturation 97% 12/21/2021 9:11 AM CDT Inhaled Oxygen Concentration - - Weight 117.6 kg (259 lb 4.2 oz) 12/21/2021 9:11 AM CDT Height 160.1 cm (5' 3.03") 12/21/2021 9:11 AM CDT Body Mass Index 45.88 12/21/2021 9:11 AM CDT Plan of Treatment Health Maintenance Due Date Last Done Comments COVID-19 Vaccination (1) 1992 Procedures Procedure Name Priority Date/Time Associated Comments Diagnosis TMP HCVAB INTERP Routine 12/21/2021 1:23 Results for this PM CDT procedure are i n the results section. HEPATITIS C VIRUS Routine 12/21/2021 1:23 Benign neoplasm of Results for this ANTIBODY PM CDT thyroid gland procedure are in the results section. FREE THYROXINE Routine 12/21/2021 1:23 Benign neoplasm of Res ults for this PM CDT thyroid gland procedure are in the results section. THYROID STIMULATING Routine 12/21/2021 1:23 Benign neoplasm o f Results for this HORMONE PM CDT thyroid gland procedure are in the results section. US HEAD NECK SOFT Routine 12/21/2021 11:10 Benign neoplasm of Results for this TISSUE AM CDT thyroid gland procedure are in the results section. OSI US EXTREMITIES Routine 10/23/2021 4:52 Cancer Resul ts for this PM [employer]ATOR procedure are i n the results section. after 03/11/2021 Results TMP HCV Ab Path Interp (12/21/2021 1:23 PM CDT) [facility] Method Time Signature HCV Ab Path There is NO [facility] ER serologic [facility] evidence of Hepatitis C virus antibody. Comment: MD [place] ALCAR[place] [id number] Dictated by: MD [place] AL[place] [id number] Dictated Date/Time: 12.22.2021 8:33 AM C DT Transcribed Date/Time: 12.22.2021 8:33 AM CDT Electronically Signed By: MD [place] ALCARAZ [id number] on 12.22.2021 8:33 AM C Specimen Anatomical Collection Method Collection Time Receive d Time (Source) Location / / Volume Laterality Blood 12/21/2021 1:23 12/21/2021 PM CDT 6:06 PM CDT Zina Luo [employer] LAB BLOOD ORDERABLES Performing Organization Address City/[facility]/ZIP Code Phon e Number [address] [address] Hepatitis C Virus Ab (12/21/2021 1:23 PM CDT) [facility] gist Method Time Signature HCVAb. Non Reactive Non Reactive [facility] Comment: Antibody detection in the immunocompromi sed and immunosuppressed population may be delayed or absent entirely. Therefore serial testing, correlation with other clinical findings, and supplemental testin g (if available) should be taken into co nsideration when interpreting the results. Performed at: [facility] [address] [place] [id number] Specimen Anatomical Collection Method Collection Time Receive d Time (Source) Location / / Volume Laterality Blood 12/21/2021 1:23 12/21/2021 PM CDT 6:06 PM CDT Zina Luo [employer] LAB BLOOD ORDERABLES Performing Organization Address City/[facility]/ZIP Code Phon e Number [address] [address] TSH (12/21/2021 1:23 PM CDT) athologist Signature TSH 1.66 0.27 - 4.20 [facility] mcunit/mL DIAG[facility]IC [facility]ENTER Specimen Anatomical Collection Method Collection Time Receive d Time (Source) Location / / Volume Laterality Blood 12/21/2021 1:23 12/21/2021 PM CDT 1:30 PM CDT Zina Luo [employer] LAB BLOOD ORDERABLES Performing Organization Address City/[facility]/ZIP Code Phon e Number [facility] DIAGNOSTIC Unless otherwise noted, [place], [place] [address] CENTER all lab tests performed by: Division of Pathology and Laboratory Medicine [address] Free T4 (12/21/2021 1:23 PM CDT) athologist Signature T4 Free 1.22 0.93 - 1.70 [facility] ng/dL DIAGNOSTIC CENTER Specimen Anatomical Collection Method Collection Time Receive d Time (Source) Location / / Volume Laterality Blood 12/21/2021 1:23 12/21/2021 PM CDT 1:30 PM CDT Zina Luo NP LAB BLOOD ORDERABLES Performing Organization Address City/State/ZIP Code Phon e Number [place] [facility] Unless otherwise noted, [address] all lab tests performed by: Division of Pathology and Laboratory Medicine [facility] US HEAD NECK SOFT TISSUE (12/21/2021 11:10 AM CDT) Anatomical Region Laterality Modality Head, Neck Ultrasound Specimen (Source) Anatomical Collection Method Collection Time Re ceived Time Location / / Volume Laterality 12/21/2021 11:06 AM CDT Impressions 12/21/2021 11:23 AM CDT 1. Benign-appearing 0.9 cm nodule in the right thyroid. 2. No adenopathy. Narrative 12/21/2021 11:23 AM CDT FULL RESULT: Examination: US HEAD NECK SOFT TISSUE, 11:10 AM Clinical History: Benign neoplasm of thy roid gland Indication: Other:, Thyroid nodule Comparison: Outside ultrasound 10/23/2021 Technique: Grayscale and color Doppler u ltrasound of the soft tissues of the neck. Findings: Right thyroid lobe measures 1.4 x 4.6 x 1.5 cm. Spongiform nodule (TR 1) in the right mid thyroid measures 0.6 x 0.9 x 0.4 cm. Left thyroid lobe measures 1.5 x 3.8 x 1 .8 cm without internal nodularity. There is no suspicious adenopathy in the lateral compartment of the neck. No suspicious submandibular, submental, or delphian lymph node is seen. Procedure Note Teressa Pickens MD - 12/21/2021Fo rmatting of this note might be different from the original. FULL RESULT: Examination: US HEAD NECK SOFT TISSUE, 11:10 AM Clinical History: Benign neoplasm of thy roid gland Indication: Other:, Thyroid nodule Comparison: Outside ultrasound 10/23/2021 Technique: Grayscale and color Doppler u ltrasound of the soft tissues of the neck. Findings: Right thyroid lobe measures 1.4 x 4.6 x 1.5 cm. Spongiform nodule (TR 1) in the right mid thyroid measures 0.6 x 0.9 x 0.4 cm. Left thyroid lobe measures 1.5 x 3.8 x 1 .8 cm without internal nodularity. There is no suspicious adenopathy in the lateral compartment of the neck. No suspicious submandibular, submental, or delphian lymph node is seen. IMPRESSION: 1. Benign-appearing 0.9 cm nodule in the right thyroid. 2. No adenopathy. 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 For comparison only. No MD Ojeda originated interpretation requested or a vailable. Daisy KELLER IMG OUTSIDE IMAGE ORDERABLES after 03/11/2021 Insurance Payer Benefit Plan / Subscriber ID Effective Dates Phone Addre ss Type Group BLUE CROSS BCBS PPO POS [id number] 2020-John [phone] [id number] PPO BLUE SHIELD OUT OF STATE t 3 [facility] [address] (Home) [address] [place] [address] Addis Mcclure Personal/Family Self [address] [place] [address] (Home) [address] [place] [address] Care Teams Cpas Relationship Specialty Start Date End Date Kaya Chen MD PCP - General Internal Medicine 11/21/21 11/25/[address] [place] [id number] Elizabeth Dawn MD PCP - General Endocrinology 11/26/21 12/03/[address] [place] [id number] Brandon El MD PCP - General Endocrinology 12/04/21 12/13/[address] [place] [phone] Alfie Mills MD PCP - General Surgical Oncology 12/14/21 [facility]5 [place], [place] [id number] Johan Marquis PCP - External Primary Internal Medicine 12/21/21 MD Merline Care Provider [address] [place] [id number]
--- OUTSIDE RECORDS SUMMARY | 2022-03-11 18:42 | XMS REPORT | Continuity of Care Document ---
:1985 Author Organization [facility] t Address [address] [place] [address] [address] [place] [address] Care Team Providers Name Role Phone [phone] Primary Care Physician Unavailable SYSTEM, NOT IN Attending Clinician Unavailable MARTHA Attending Clinician Unavailable Martha VALDIVIA Attending Clinician Puja BOLAND Attending Clinician PUJA Attending Clinician Unavailable LÓPEZ Attending Clinician Unavailable López VALDIVIA Attending Clinician Gene VALDIVIA Attending Clinician GENE Attending Clinician Unavailable Jasmeet FREEMAN N Attending Clinician Thaddeus FREEMAN Y Attending Clinician Vivek GARCIA, D Attending Clinician Unavailable BRIDGETTE_R Attending Clinician Unavailable SATISH DAVIS Attending Clinician Unavailable ELENI VOSS Attending Clinician Unavailable DANY Attending Clinician Unavailable Lab, Fam Pob I Attending Clinician Unavailable Syed KELLER Attending Clinician SYED Attending Clinician Unavailable Mercedez Mills MA Attending Clinician Unavailable Doctor Unassigned, Name Attending Clinician Unavailable MICHAELON_R Admitting Clinician Unavailable DANY Admitting Clinician Unavailable Payers Payer Name Policy Type Policy Number Effective Date Expiration Date S ourjennifer BCBS OUT OF [id number] 2017 2024 00:00:00 STATE 00:00:00 [place] [id number] 2017 OUT OF STATE 00:00:00 [place] [id number] 2017 2020 00:00:00 OF [place] (PPO) 00:00:00 Problems Condition Condition Condition Status Onset Resolution Last Treating Co mments Source Name Details Category Date Date Treatment Clinician Date Bipolar Bipolar Problem Active Common affective affective Spir it disorder, disorder, - CH I current current St episode episode [facility] mixed, mixed, Medical current current Center episode episode severity severity unspecifie unspecifie d d Seasonal Seasonal Problem Active Commo n allergic allergic Spirit rhinitis, rhinitis, - CH I unspecifie unspecifie St d trigger d trigger [facility] Dysthymia Dysthymia Problem Active Com mon Spirit - [facility] Attention- Attention- Problem Active C ommon deficit deficit Spirit hyperactiv hyperactiv - [facility]I ity ity St disorder, disorder, Luke s combined combined Medica l type type Center Abnormal Abnormal Problem Active Commo n thyroid thyroid Spirit blood test blood test - [facility] Hyperchole Hyperchole Problem Active C ommon sterolemia sterolemia Sp pawan - [facility] Lung Lung Problem Active Common nodule < nodule < Spirit 6cm on CT 6cm on CT - I [facility] Pelvic Pelvic Problem Active Common fluid fluid Spirit collection collection - [facility] Pneumonia Pneumonia Problem Active Com mon due to due to Spirit infectious infectious - [facility]I organism, organism, St unspecifie unspecifie Essie kes d d Medical laterality laterality Ce nter , , unspecifie unspecifie d part of d part of lung lung Muscle Muscle Problem Active Common tension tension Spirit headache headache - [facility] Bilateral Bilateral Problem Active Com mon carpal carpal Spirit tunnel tunnel - CHI syndrome syndrome [facility] Acquired Acquired Problem Active Commo n hypothyroi hypothyroi Sp pawan dism dism - [facility] Tobacco Tobacco Problem Active Common abuse abuse Spirit - [facility] Carpal Carpal Problem Active 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 [facility] Migraine Migraine Problem Active Commo n without without Spirit aura and aura and - CHI without without St status status [facility]ukes migrainosu migrainosu Me dical s, not s, not Center intractabl intractabl e e Attention Attention Diagnosis Active C ommon deficit deficit Spirit disorder, disorder, - CH I unspecifie unspecifie St d d [facility] hyperactiv hyperactiv Me dical ity ity Center presence presence Allergies, Adverse Reactions, Alerts Allergy Allergy Status Severity Reaction(s) Onset Inactive Treating Comm ents Source Name Type Date Date Clinician Bactrim Adverse Active Info Not Common Reaction Available Spiri t - [facility] NO KNOWN Drug Active Univers ALLERGIE Class ity of S [facility] Family History Family Member Diagnosis Comments Start Date Stop Date Source Maternal aunt Breast cancer Universi ty [facility] Maternal aunt Thyroid cancer Univers [facility] Maternal grandfather Melanoma [facility] Paternal [facility] Paternal uncle Lung cancer Universit y [facility] Natural son -Other cancer University [facility] Social History Social Habit Start Date Stop Date Quantity Comments Source Exposure to Yes University of SARS-CoV-2 [facility] (event) Branch History of User of smokeless [facility] ity of tobacco use tobacco Ignacio Frye [facility] Tobacco use and 2021-12-21 2021-12-21 Former smokeless Uni versity of exposure 00:00:00 00:00:00 tobacco user [facility] Alcohol intake 2021-12-21 2021-12-21 Ex-drinker University of 00:00:00 00:00:00 (finding) Ignacio Whitt [facility] Tobacco Comment 2021-12-21 2021-12-21 smoked since age Uni versity of 00:00:00 00:00:00 15 or 16 [place] MD Whitt [facility] Sex Assigned At [birth year] F Universit y of 00:00:00 00:00:00 Ignacio Whitt [facility] Smoking Status Start Date Stop Date Source Unknown if ever smoked [facility] Ex-smoker 2021-12-21 00:00:00 2021-12-21 00:00:00 Universi [facility] Medications Ordered Filled Start Stop Current Ordering Indication Dosage Frequency Signature Comments Components Source Medication Medication Date Date Medication? Clinician (SIG) Name Name dextroamphe Yes daily. Univ ers tamine-amph 3-25 ity of etamine 10:03: [place] (Adderall 43 XR) 30 mg Anderso 24 hr n capsule [facility] esomeprazol Yes 40mg Take 40 mg Univers e (NexIUM) 3-25 by mouth ity o f 40 MG 10:03: as needed. [place] capsule 43 MD Luís bullock [facility] cholecalcif Yes 400U Take 400 Un curt ankita, 3-25 Units by ity of vitamin D3, 10:03: mouth [place] (VITAMIN 43 daily. D3) 5,000 Anderso units tab n tablet [facility] ARIPiprazol Yes daily. [facility] ers e (ABILIFY) 3-17 ity of 5 mg tablet 00:00: [place] 00 MD Luís bullock [facility] gabapentin Yes 3 (three) Un curt (NEURONTIN) 3-17 times a ity o f 300 mg 00:00: day. [place] capsule 00 MD Luís bullock [facility] venlafaxine Yes daily. [facility] ers (EFFEXOR-XR 3-01 ity of ) 37.5 mg 00:00: [place] 24 hr 00 MD cira [facility] iron-vit Yes daily. Univers C-vit 1-17 ity of J14-kaukm 00:00: [place] acid (Iron 00 100 Plus) [facility] 100-250-25- n 1 Cancer mg-mg-mcg-m [place] g tab venlafaxine Yes daily. [place] [facility] ers 150 MG tr24 1-11 ity of 00:00: [place] 00 MD Luís bullock [facility] LORazepam Yes as needed. Un curt (ATIVAN) 6-01 ity of 0.5 mg 00:00: [place] tablet 00 MD Luís bullock [facility] Amphetamine Amphetamine 2018- Yes Tomás 1 capsule Common -Dextroamph -Dextroamph 0-04 Romo in the Spirit et ER et ER 00:00: morning - CHI 00 [facility] Vital Signs Vital Name Observation Time Observation Value Comments Source Systolic blood 2021-12-21 14:11:30 126 mm[Hg] Univer sity of pressure [facility] Diastolic blood 2021-12-21 14:11:30 73 mm[Hg] Unive rsity of pressure Ign[facility] Heart rate 2021-12-21 14:11:30 125 /min [facility] [place] [facility] Body temperature 2021-12-21 14:11:30 37 Marielos Univ ersity of [place] [facility] Respiratory rate 2021-12-21 14:11:30 16 /min [facility] Body height 2021-12-21 14:11:30 160.1 cm [facility]i ty [facility] [place] MD [facility] Body weight 2021-12-21 14:11:30 117.6 kg [facility]i ty [facility] [place] MD [facility] BMI 2021-12-21 14:11:30 45.88 kg/m2 Universi ty of [place] MD [facility] on [facility] Oxygen saturation in 2021-12-21 14:11:30 97 /min University Arterial blood by Ignacio escobar Pulse oximetry [facility] Procedures Procedure Date / Time Performing Clinician Source Performed THYROID STIMULATING 2021-12-21 18:23:00 Symone LuoSarah [facility] HORMONE [facility] FREE THYROXINE 2021-12-21 18:23:00 Puja [facility] o f [facility] HEPATITIS C VIRUS 2021-12-21 18:23:00 Puja [facility] ANTIBODY [facility] TMP HCVAB INTERP 2021-12-21 18:23:00 [facility] NECK SOFT 2021-12-21 16:10:20 Puja [facility] TISSUE [facility] OSI US EXTREMITIES 2021-10-23 22:52:00 Daisy [facility] Plan of Care Planned Activity Planned Date Details Comments Source Future Scheduled 2022-01-18 COVID-19 Vaccination [facility] Test 14:03:45 (1) [code = COVID-19 MD Frye rson Cancer Vaccination (1)] Center Encounters Start End Encounter Admission Attending Care Care Encounter Source Date/Time Date/Time Type Type Clinicians Facility Department ID 2021-12-31 Outpatient [facility] [id number] [place] 08:22:50 [id number] [facility] 2021-12-04 Outpatient ABRAHAM OWNG MDA [id number] 10:19:10 PROVIDER Feroz bullock 2022-01-07 2022-01-07 Outpatient R [facility] [id number] Univers 13:00:00 13:00:00 [facility] [id number]22-01-07 2022-01-07 [facility] [id number] Univers 13:00:00 13:00:00 [facility] 2022-01-07 2022-01-07 Telephone [facility] [id number] Univers 00:00:00 00:00:00 [facility] 350.1.13.10 it y of [place] 4.2.7.2.686 Nilesh as SHY?BLEA [phone] [address] MEDICAL OFFICE BUILDING 2021-12-21 2021-12-21 Hospital Puja 1.2.840.1 [id number] [facility] 12:45:00 23:59:00 Encounter Zina 87735.1.1 it y of 3.412.2.7 [place] .3.048495 .8 Feroz kobe [facility] 2021-12-21 2021-12-21 Outpatient MARINO LUO MDA MDA [id number] 12:45:00 23:59:00 ZINA bullock 2021-12-21 2021-12-21 Outpatient MARINO DAWN MDA MDA [id number] 14:05:10 14:05:10 ELIZABETH bullock 2021-12-21 2021-12-21 Office Elizabeth Dawn 1.2.840.1 [id number] Univers 09:30:00 13:53:30 Visit Alfie Mills 82655.1.1 ity of 3.412.2.7 [place] .3.477037 MD [facility] 2021-12-21 2021-12-21 Outpatient EL LÓPEZ MDA ABRAHAM [id number] 09:02:46 13:53:30 ELIZABETH bullock 2021-12-21 2021-12-21 Ancillary Puja, 1.2.840.1 [id number] Univers 10:30:00 12:30:00 Procedure Zina [id number] it y of 3.412.2.7 [place] .3.473702 [facility] 2021-12-21 2021-12-21 Outpatient MARINO LUO ABRAHAM ROSARIO [id number] 10:35:58 10:35:58 ZINA bullock 2021-12-21 2021-12-21 Outpatient EL LÓPEZ ABRAHAM MDA [id number] 08:57:43 08:57:56 ELIZABETH bullock 2021-12-21 2021-12-21 NPR López, 1.2.840.1 [id number] [facility] 08:30:00 08:57:56 Elizabeth 57365.1.1 ity of 3.412.2.7 [place] .3.221157 MD [facility] 2021-12-21 2021-12-21 Travel 1.2.840.1 [id number] Univers 00:00:00 00:00:00 [id number] 350.1.13.41 ity of 3.412.2.7 2.[place].7.3.698 [place] .3.235107 084.8 MD [facility] 2021-12-19 2021-12-19 Ancillary Gene, 1.2.840.1 [id number] Univers 20:00:00 20:05:00 Procedure Alfie 24745.1.1 it y of 3.412.2.7 [place] .3.825889 MD [facility] 2021-12-19 2021-12-19 Outpatient MARINO MILLS MDA MDA [id number] 16:50:14 16:50:14 ALFIE bullock 2021-12-14 2021-12-14 Telephone Walker, 1.2.840.1 [id number] Univers 00:00:00 00:00:00 Mayra Bullock 32661.1.1 ity of 3.412.2.7 [place] .3.491075 MD Hagan8 [facility] 2021-12-07 2021-12-07 Telephone Travis, 1.2.840.1 [id number] Univers 00:00:00 00:00:00 Dana Olvera 41708.1.1 ity of 3.412.2.7 [place] .3.751587 .8 [facility] 2021-12-04 2021-12-04 Orders Puja, 1.2.840.1 [id number] Univers 00:00:00 00:00:00 Only Symone-Sarah 12739.1.1 ity of 3.412.2.7 [place] .3.374107 .8 [facility] 2021-11-26 2021-11-26 Pre-Evalua Vivek, 1.2.840.1 [id number] Univers 00:00:00 00:00:00 savanna Locke 36052.1.1 i ty of 3.412.2.7 [place] .3.807760 MD Hagan8 [facility] 2021-07-23 2021-07-23 Outpatient BRIDGETTE_Bryce [facility] [id number] [place] 08:49:00 08:49:00 025 [facility] 2021-04-23 2021-05-22 Outpatient GRACE DAVIS [id number] JUSTINOBL 11:36:00 23:59:00 [facility] 2021-03-20 2021-04-18 Outpatient GRACE DAVIS [id number] MHBL 08:41:00 23:59:00 [facility] 2021-04-03 2021-04-03 Emergency E GRACE VOSS [id number] BL 00:21:00 02:00:00 ANAIWAHAB 2021-03-11 2021-03-14 Inpatient U GRACE SAENZ MED [id number] MHBL 22:12:00 15:28:00 LUCRETIA 2020-04-17 2020-04-17 Laboratory Lab, [facility] 1.2.840.114 [id number] 16:20:00 16:40:00 Only Fam Pob I Health 350.1.13.10 [place] 4.2.7.2.686 Professio [phone] [place] [address] Office Building [facility] 2020-04-17 2020-04-17 Laboratory Lab, [facility] 1.2.840.114 [id number] Univers 16:20:00 16:40:00 Only Fam Pob I Health 350.1.13.10 ity of [place] 4.2.7.2.686 Nilesh as Professio [id number] [address] Office Building [facility] 2020-04-17 2020-04-17 Outpatient R [facility] [id number] Univers 16:20:00 16:20:00 ity [facility] 2020-04-17 2020-04-17 Outpatient R [facility] [id number] Univers 16:20:00 16:20:00 ity [facility] 2020-04-15 2020-04-16 Laboratory Lab, [facility] 1.2.840.114 [id number] 10:20:00 13:48:00 Only Fam Pob I Health 350.1.13.10 [place] 4.2.7.2.686 Professio [id number] [place] [address] Office Building [facility] 2020-04-15 2020-04-16 Laboratory Lab, [facility] Fam Pob I [facility] 1.2. 840.114 [id number] Univers 10:20:00 13:48:00 Only Anexiomara [facility] 350.1.13.10 ity of [place] 4.2.7.2.686 Nilesh as Professio [phone] [address] Office Building [facility] 2020-04-15 2020-04-15 Outpatient R [facility] [id number] Univers 10:20:00 10:20:00 [id number] [facility] 2020-04-15 2020-04-15 Outpatient R SYED [facility] [id number] Univers 10:20:00 10:20:00 ROSEANNA ity of [facility] 2020-04-12 2020-04-12 Telephone LORAINE Mills [id number] [id number] Univers 00:00:00 00:00:00 Latia LEES 350.1.13.10 ity of [facility] 4.2.7.2.686 Nilesh as [id number] [address] 2020-04-09 2020-04-09 Outpatient R SYED [facility] [id number] Univers 16:40:00 16:40:00 ROSEANNA [facility] 2020-04-09 2020-04-09 Laboratory Lab, Adc Fam Pob I [facility] 1.2. 840.114 [id number] Univers 15:16:22 15:26:16 Only Roseanna Lynch [facility] 350.1.13.10 ity of [place] 4.2.7.2.686 Nilesh as Professio [phone] [address] Office Building One 2020-04-09 2020-04-09 Letter Doctor LORAINE 1.2.840.114 [id number] Univers 00:00:00 00:00:00 (Out) UnassignedNABEEL 350.1.13.10 ity of [place] [facility] 4.2.7.2.686 Nilesh as [phone] [address] 2019-07-02 2019-07-02 [facility] [id number] Common 16:35:00 16:35:00 t [place] Spiri [facility] 2019-07-02 2019-07-02 Out[facility] [id number] Common 14:11:00 14:11:00 t [place] Spiri t [facility] [place] [facility] 2019-06-03 2019-06-03 Outpatient [facility] [id number] Common 15:40:00 15:40:00 t [place] Spiri graeme [facility] 2019-05-24 2019-05-24 Outpatient [facility] [id number] Common 08:02:00 08:02:00 t [place] Spiri graeme [facility] 2019-05-18 2019-05-18 Outpatient [facility] [id number] Common 07:36:00 07:36:00 t [place] Spiri t [facility] [place] [facility] 2019-04-27 2019-04-27 Outpatient [facility] [id number] Common 16:25:00 16:25:00 t [place] Spiri t [facility] [place] [facility] 2019-04-27 2019-04-27 Outpatient [facility] [id number] [facility] 09:18:00 09:18:00 2019-04-19 2019-04-19 Inpatient U [facility] [id number] [facility] 13:01:00 08:25:00 2019-04-15 2019-04-15 Outpatient E [facility] [id number] [facility] 17:22:00 17:22:00 2019-04-15 2019-04-15 Out[facility] [id number] Common 08:20:00 08:20:00 [place] [facility] [place] 2019-03-22 2019-03-22 Out[facility] [id number] Common 10:03:00 10:03:[address] Sp[address] [facility] 2019-03-21 2019-03-21 Outpatient [facility] [id number] Common 15:45:00 15:45:00 [place] [facility] [facility] 2019-03-21 2019-03-21 Outpatient [facility] [id number] Common 15:42:00 15:42:00 t [place] Sp[place] [facility] 2019-03-18 2019-03-18 Outpatient [facility] [id number] Common 10:42:00 10:42:[address] Sp[address] [facility] 2019-03-16 2019-03-16 Outpatient [facility] [id number] Common 17:20:00 17:20:00 t [place] Sp[place] [facility] 2019-03-15 2019-03-15 Outpatient [facility] [id number] Common 13:20:00 13:20:00 t [place] [facility] [place] [facility] 2019-02-08 2019-02-08 Outpatient [facility] [id number] Common 10:11:00 10:11:00 t [place] Sp[place] [facility] 2019-02-08 2019-02-08 Outpatient [facility] [id number] Common 09:05:00 09:05:00 t [place] Spiri t [place] [facility] 2019-01-08 2019-01-08 Outpatient [facility] [id number] Common 15:19:00 15:19:00 t [place] Spiri t [place] [facility] 2018-12-29 2018-12-29 Outpatient [facility] [id number] Common 17:17:00 17:17:00 t [place] Spiri t [facility] [place] [facility] 2018-12-29 2018-12-29 Outpatient [facility] [id number] Common 16:40:00 16:40:00 t [place] Spiri t [facility] [place] [facility] 2018-12-14 2018-12-14 Outpatient [facility] [id number] Common 09:57:00 09:57:00 t [place] Spiri t [facility] [place] [facility] 2018-12-08 2018-12-08 Outpatient [facility] [id number] Common 14:00:00 14:00:00 t [place] Sp[place] [facility] 2018-11-06 2018-11-06 Outpatient [facility] [id number] Common 12:23:00 12:23:00 t [place] Spiri t [place] [facility] 2018-11-06 2018-11-06 Outpatient [facility] [id number] Common 11:04:00 11:04:00 t [place] Sp[facility] [place] [facility] 2018-10-08 2018-10-08 Outpatient [facility] [id number] Common 10:20:00 10:20:00 t [place] Spiri graeme [facility] 2018-10-02 2018-10-02 Outpatient [facility] [id number] Common 17:40:00 17:40:00 t [place] Spiri t [facility] [place] [facility] 2018-09-07 2018-09-07 Outpatient [facility] [id number] Common 15:00:00 15:00:00 t [place] Spiri graeme [facility] 2018-07-13 2018-07-13 Outpatient [facility] [id number] Common 08:00:00 08:00:00 t [place] Spiri graeme [facility] [place] [facility] 2018-07-06 2018-07-06 Outpatient [facility] [id number] Common 13:06:00 13:06:00 t [place] Spiri graeme [facility] 2018-06-12 2018-06-12 Outpatient [facility] [id number] Common 13:05:00 13:05:00 t [place] Spiri graeme [facility] [place] [facility] 2018-06-11 2018-06-11 Outpatient [facility] [id number] Common 15:40:00 15:40:00 t [place] Spiri graeme [facility] 2018-03-16 2018-03-16 Outpatient [facility] [id number] Common 11:00:00 11:00:00 t [facility] Results Test Description Test Time Test Comments Results Result Comments Source TMP HCV Ab Janie Matthew 2021-12-22 13:33:06 Test Item Value Reference Range Interpretation Comme nts HCV Ab There is NO VINNIE Path serologic MD [place] [id number] by: VINNIE Matthew evidence of MD [place] [id number] Date/Time: (test Hepatitis C 12.22.2021 8:33 AM CDT Transcribed Date/Time: 12.22.2021 code = virus 8:33 AM CDTElec tronically Signed By: VINNIE SORIANO [id number]) antibody. [place] [id number] on 12.22.2021 8:33 AM [facility] [id number] 04:21:05 Test Item Value Reference Range Interpretation Comments HCVAb. (test Non Reactive Non Reactive Antibody detect ion in the code = 5762) immunocompromis ed and immunosuppresse d population may be delayed or absent entirely. There fore serial testing, correl ation with other clinical findings, and supplementa l testing (if available) should be taken into cons ideration when interpreti ng the results.Perform ed at:[facility] Blood Donor [id number] [place], [place] [address] [facility]22-[facility] 22:21:56 Test Item Value Reference Range Interpretation Comments TSH (test code = 1.66 See_Comment [Automated message] The 22835-3) system which ge nerated this result transmit wesly reference range : 0.27 - 4.20 mcunit/mL. The reference range was not used to interpr et this result as brittney l/abnormal. [facility] [id number] 22:21:55 Test Item Value Reference Range Interpretation Comments T4 Free (test code = 3024-7) 1.22 ng/dL 0.93-1.70 [facility]
[2022-03-11] MEDS ORDERED: TETANUS & DIPHTHERIA TOX,ADULT 0.5 ML VIAL ONE (19:08)
[2022-03-11] MEDS ORDERED: LIDOCAINE 1% MPF 5 ML VIAL ONE (19:08)
--- NOTE | 2022-03-11 19:16 | RAD REPORT ---
EXAM DESCRIPTION: CT - CTHCSPWOC - 03/11/2022 7:04 pm CLINICAL HISTORY: Trauma, head and neck injury. LOC, head injury COMPARISON: No comparisons TECHNIQUE: Axial 5 mm thick images of the head were obtained. Axial 2 mm thick images of the cervical spine were obtained with sagittal and coronal reconstruction images generated and reviewed. All CT scans are performed using dose optimization technique as appropriate and may include automated exposure control or mA/KV adjustment according to patient size. FINDINGS: CT HEAD WITHOUT CONTRAST: No acute hemorrhage, hydrocephalus or extra-axial collection is identified.No areas of brain edema or midline shift. Prominent cavum septum pellucidum cysts noted, normal variation. The paranasal sinuses and mastoids are clear.The calvarium is intact. CT CERVICAL SPINE WITHOUT CONTRAST: No fracture or subluxation.Mild lower cervical spondylosis.No prevertebral soft tissues swelling is i dentified. IMPRESSION: No acute intracranial or cervical spine findings.
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
[2022-03-11] MEDS ORDERED: FENTANYL CITR 100 MCG/2 ML ONE (20:32)
[2022-03-11 22:44] VITALS: TEMP 98; O2SAT 100
[2022-03-11 22:45] VITALS: BP 120/79
== END 2022-03-11 21:44 | disposition home or self-care (01) ==
LOC: ER 18:39
PROC: 0JQ10ZZ Repair Face Subcutaneous Tissue and Fascia, Open Approach (ICD-10-PCS; principal; 2022-03-11)
DX: S01.01XA Laceration without foreign body of scalp, initial encounter (principal); Y00.XXXA Assault by blunt object, initial encounter; Y93.9 Activity, unspecified; Y92.019 Unspecified place in single-family (private) house as the place of occurrence of the external cause; Z23 Encounter for immunization; Z88.1 Allergy status to other antibiotic agents; F31.9 Bipolar disorder, unspecified
CPT/HCPCS: 70450; 72125; 90471; 90714; 96374; 99284; 12014; J3010

== ENCOUNTER 2023-03-28 22:20 | Emergency (ER) | payer BC ==
--- OUTSIDE RECORDS SUMMARY | 2023-03-28 22:23 | XMS REPORT | Clinical Summary ---
:1985 Author Organization [facility] MD [facility] Address [address] [place] [address] Care Team Providers Name Role Phone Alfie Mills MD Primary Care Provider Johan Marquis MD Unavailable [phone] Allergies No known active allergies Medications Medication Sig Dispensed Refills Start Date End Date Status ARIPiprazole (ABILIFY) 5 daily. 0 12/13/2021 Active mg tablet dextroamphetamine-amphet daily. 0 Active amine (Adderall XR) 30 mg 24 hr capsule gabapentin (NEURONTIN) 3 (three) times 0 12/13/2021 Active 300 mg capsule a day. iron-vit C-vit [id number] daily. 0 10/15/2021 Active acid (Iron 100 Plus) [id number] [id number]-mg tab LORazepam (ATIVAN) 0.5 as needed. 0 [...] tab tablet Active Problems Not on file Surgical History Surgery Date Site/Laterality Comments TUBAL LIGATION 09/29/2008 - 09/28/2009 Family History Medical History Relation Name Comments Breast cancer Maternal Aunt Thyroid cancer Maternal Aunt Melanoma Maternal Grandfather Vaginal cancer Paternal Aunt Lung cancer Paternal Uncle -Other cancer Son Relation Name Status Comments Maternal Aunt Maternal Grandfather Paternal Aunt Paternal Uncle Son Social History Tobacco Use Types Packs/Day Years Used Date Smoking Tobacco: Former Smokeless Tobacco: Former Qu it: 2019 Comments: smoked since age 15 or 16 Alcohol Use Standard Drinks/Week Comments Not Currently 0 (1 standard drink = 0.6 oz pure alcoho l) Sex Assigned at Date Recorded 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 Occupation Industry Not on file Not on file Not on file Obstetrics History Last Filed Vital Signs Not on file Plan of Treatment Health Maintenance Due Date Last Done Comments COVID-19 Vaccination (#1) 03/02/1988 Results Not on fileafter 03/28/2022 Insurance Payer Benefit Plan / Subscriber ID Effective Dates Phone Addre ss Type Group BLUE CROSS BCBS PPO POS [id number] 2020-Presen [phone] [id number] PPO BLUE SHIELD OUT OF STATE t [address] [facility] [id number] [address] (Home) [address] [place] [id number] Addis Mcclure Personal/Family Self [address] [place] [address] Rd (Home) [address] [place], [place] [id number] Care Teams City Engineer Relationship Specialty Start Date End Date Alfie Mills MD PCP - General Surgical Oncology 12/14/[address] [place] [id number] Johan Marquis PCP - External Primary Internal Medicine 12/21/21 MD [facility] Care Provider [address] [place] [id number]
--- OUTSIDE RECORDS SUMMARY | 2023-03-28 22:24 | XMS REPORT | Continuity of Care Document ---
:1985 Author Organization [facility] t Address [address] [place] [address]. [address] [place] [address] Care Team Providers Name Role Phone April VALDIVIA, Kaya Primary Care Physician SYSTEM, PROVIDER NOT IN Attending Clinician Unavailable _JESUS_Angelito_Deangelo Attending Clinician Unavailable LUIS M PEREZ Attending Clinician Unavailable LUIS M PEREZ Attending Clinician Unavailable SHEY THOMAS Attending Clinician Unavailable Shey Thomas MD Attending Clinician Puja BOLAND, Zina Attending Clinician CHRISTIE DAWN Attending Clinician Unavailable Christie Dawn MD Attending Clinician Alfie Mills MD Attending Clinician Mayra Alamo MA Attending Clinician Dana Travis MA Attending Clinician Marbella Doyle RN Attending Clinician Unavailable CHIQUITA Attending Clinician Unavailable RHYS DAVIS Attending Clinician Unavailable ARTHUR VOSS Attending Clinician Unavailable LUCRETIA SAENZ Attending Clinician Unavailable Lab, Adc Fam Pob I Attending Clinician Unavailable Anene MEAT BONER AND SLICER, Ayanna Attending Clinician AYANNA LYNCH Attending Clinician Unavailable Latia Mills MA Attending Clinician Unavailable Doctor Unassigned, [place] Attending Clinician Unavailable DONNA_SWANGELAAntoinette_Angelito_J Admitting Clinician Unavailable CHIQUITA Admitting Clinician Unavailable LUCRETIA SAENZ Admitting Clinician Unavailable Payers Payer Name Policy Type Policy Number Effective Date Expiration Date S elizabeth [place] [id number] 2020 2024 00:00:0 0 OUT OF STATE 00:00:00 [place] [id number] 2020 OF [place]PP[place] 00:00:00 [place] [id number] 2017 OUT OF STATE 00:00:00 Problems Condition Condition Condition Status Onset Resolution Last Treating Co mments Source Name Details Category Date Date Treatment Clinician Date Bipolar Bipolar Problem Active Common affective affective Spir it disorder, disorder, - CH I current current episode [facility] mixed, mixed, Medical current current Center episode episode severity severity unspecifie unspecifie d d Seasonal Seasonal Problem Active Commo n allergic allergic Spirit rhinitis, rhinitis, - CH I unspecifie unspecifie St d trigger d [facility] Dysthymia Dysthymia Problem Active Com mon Spirit - [facility] Attention- Attention- Problem Active C ommon deficit deficit Spirit hyperactiv hyperactiv - [facility] ity ity St disorder, disorder, ke s combined combined Medica l type type Center Abnormal Abnormal Problem Active Commo n thyroid thyroid Spirit blood test blood test - [facility] Hyperchole Hyperchole Problem Active C ommon sterolemia sterolemia Sp pawan - [facility] Lung Lung Problem Active Common nodule < nodule < Spirit 6cm on CT 6cm on CT - CH I [facility] Pelvic Pelvic Problem Active Common fluid fluid Spirit collection collection - [facility] Pneumonia Pneumonia Problem Active Com mon due to due to Spirit infectious infectious - [facility] organism, organism, St unspecifie unspecifie Essie kes d d Medical laterality laterality Ce nter , , unspecifie unspecifie d part of d part of lung lung Muscle Muscle Problem Active Common tension tension Spirit headache headache - [facility]I [facility] Bilateral Bilateral Problem Active Com mon carpal carpal Spirit tunnel tunnel - [facility]I syndrome syndrome [facility] Acquired Acquired Problem Active Commo n hypothyroi hypothyroi Sp pawan dism dism - [facility] Tobacco Tobacco Problem Active Common abuse abuse Spirit - [facility] Carpal Carpal Problem Active 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 wrist [facility] Migraine Migraine Problem Active Commo n without without Spirit aura and aura and - [facility]I without without St status status [facility] migrainosu Me dical s, not s, not Center intractabl intractabl e e Attention Attention Diagnosis Active C ommon deficit deficit Spirit disorder, disorder, - CH I unspecifie unspecifie St d d [facility] hyperactiv hyperactiv Me dical ity ity Center presence presence Allergies, Adverse Reactions, Alerts Allergy Allergy Status Severity Reaction(s) Onset Inactive Treating Comm ents Source Name Type Date Date Clinician PENICILL Drug Active Rash 2021-09 Univers INS Class 2-19 ity of 00:00: [address] Sulfamet Propensi Active Hives 2017-09 Method i hoxazole ty to 0-27 st adverse 00:00: Hospita oprim reaction 00 l s to drug NO KNOWN Drug Active Univers ALLERGIE Class ity of S [facility] Bactrim Adverse Active Info Not Common Reaction Available Spiri t - [facility] Family History Family Member Diagnosis Comments Start Date Stop Date Source Maternal aunt Thyroid cancer Univers ity of [facility] Maternal aunt Breast cancer Universi ty of [facility] Maternal grandfather Melanoma Univ ersity of [facility] Paternal aunt Vaginal cancer Univers ity of [facility] Paternal uncle Lung cancer Universit y of [facility] Natural son -Other cancer University of [facility] Social History Social Habit Start Date Stop Date Quantity Comments Source Exposure to Yes University of SARS-CoV-2 (event) [facility] History of tobacco User of Univ sity of use smokeless [place] MD [facility] son tobacco [facility] Gender identity [facility] Sexual [facility] Tobacco use and 2021-12-21 2021-12-21 Former smokeless Uni versity of exposure 00:00:00 00:00:00 tobacco user Ignacio VALDIVIA [facility] Alcohol intake 2021-12-21 2021-12-21 Ex-drinker University of 00:00:00 00:00:00 (finding) Ignacio jon [facility] Tobacco Comment 2021-12-21 2021-12-21 smoked since age Uni versity of 00:00:00 00:00:00 15 or 16 Ignacio jon [facility] Sex Assigned At [birth year] [facility] 00[facility] Smoking Status Start Date Stop Date Source Tobacco smoking [facility] consumption unknown Ex-smoker 2021-12-21 00:00:00 2021-12-21 [place] o f Ignacio VALDIVIA 00:00:00 [facility] Medications Ordered Filled Start Stop Current Ordering Indication Dosage Frequency Signature Comments Components Source Medication Medication Date Date Medication? Clinician (SIG) Name Name dextroamphe Yes daily. [facility] ers tamine-amph 3-25 ity of etamine 10:03: [place] (Adderall 43 XR) 30 mg Anderso 24 hr n capsule Cancer Center esomeprazol Yes 40mg Take 40 mg Univers e (NexIUM) 3-25 by mouth ity o f 40 MG 10:03: as needed. [place] capsule 43 MD Luís bullock [facility] Center cholecalcif Yes 400U Take 400 Un curt ankita, 3-25 Units by ity of vitamin D3, 10:03: mouth Ignacio (VITAMIN 43 daily. D3) 5,000 Anderso units tab n tablet Cancer Center dextroamphe Yes daily. [facility] tamine-amph 3-25 ity of etamine 10:03: [place] (Adderall 43 XR) 30 mg Anderso 24 hr n capsule Cancer Center esomeprazol Yes 40mg Take 40 mg Univers e (NexIUM) 3-25 by mouth ity o f 40 MG 10:03: as needed. [place] capsule 43 MD Luís bullock [facility] Center cholecalcif Yes 400U Take 400 Un curt ankita, 3-25 Units by ity of vitamin D3, 10:03: mouth Ignacio (VITAMIN 43 daily. D3) 5,000 Anderso units tab n tablet Cancer Center ARIPiprazol 202-0 Yes daily. Univ ers e (ABILIFY) 3-17 ity of 5 mg tablet 00:00: [place] 00 MD Luís bullock [facility] gabapentin 2021-0 Yes 3 (three) Un curt (NEURONTIN) 3-17 times a ity o f 300 mg 00:00: day. [place] capsule 00 MD Luís bullock [facility] ARIPiprazol 202-0 Yes daily. Univ ers e (ABILIFY) 3-17 ity of 5 mg tablet 00:00: [place] 00 MD Luís bullock [facility] gabapentin 2021-0 Yes 3 (three) Un curt (NEURONTIN) 3-17 times a ity o f 300 mg 00:00: day. [place] capsule [address] [facility] venlafaxine 2021-0 Yes daily. Univ ers (EFFEXOR-XR 3-01 ity of ) 37.5 mg 00:00: [place] 24 hr 00 capsule Luís [facility] venlafaxine 2021-0 Yes daily. Univ ers (EFFEXOR-XR 3-01 ity of ) 37.5 mg 00:00: [place] 24 hr 00 [facility] iron-vit 2021-0 Yes daily. Univers C-vit 1-17 ity of D89-bjhlt 00:00: [place] acid (Iron 00 MD 100 Plus) Anderso 100-250-25- n 1 Cancer mg-mg-mcg-m Center g tab iron-vit 2021-0 Yes daily. Univers C-vit 1-17 ity of Y18-jfaus 00:00: [place] acid (Iron 00 MD 100 Plus) Anderso 100-250-25- n 1 Cancer mg-mg-mcg-m Center g tab venlafaxine 2021-0 Yes daily. Univ ers 150 MG tr24 1-11 ity of 00:00: [place] 00 MD Luís bullock [facility] venlafaxine 2021-0 Yes daily. Univ ers 150 MG tr24 1-11 ity of 00:00: [place] 00 MD Luís bullock [facility] LORazepam 2020-0 Yes as needed. Un curt (ATIVAN) 6-01 ity of 0.5 mg 00:00: [place] tablet 00 MD Luís bullock [facility] LORazepam Yes as needed. Un curt (ATIVAN) 6- ity of 0.5 mg 00:00: [place] tablet 00 MD Luís bullock [facility] Amphetamine Amphetamine 2018-09 Yes Tomás 1 capsule Common -Dextroamph -Dextroamph 0-04 Romo in the Spirit et ER et ER 00:00: morning - [facility] Vital Signs Vital Name Observation Time Observation Value Comments Source Systolic blood 2021-12-21 14:11:30 126 mm[Hg] Univer sity of pressure [place] MD [facility] Diastolic blood 2021-12-21 14:11:30 73 mm[Hg] Unive rsity of pressure [place] MD [facility] on [facility] Center Heart rate 2021-12-21 14:11:30 125 /min [facility] MD Redman on [facility] Center Body temperature 2021-12-21 14:11:30 37 Marielos [facility] on [facility] Center Respiratory rate 2021-12-21 14:11:30 16 /min [facility] MD Redman on [facility] Body height 2021-12-21 14:11:30 160.1 cm [facility] MD Redman on [facility] Body weight 2021-12-21 14:11:30 117.6 kg [facility] MD [facility] BMI 2021-12-21 14:11:30 45.88 kg/m2 [facility] MD Redman on [facility] Oxygen saturation in 2021-12-21 14:11:30 97 /min [facility] blood by Ignacio escobar Pulse oximetry [facility] Procedures Procedure Date / Time Performing Clinician Source Performed THYROID STIMULATING 2021-12-21 18:23:00 Zina Luo [facility] HORMONE [facility] FREE THYROXINE 2021-12-21 18:23[facility] HEPATITIS C VIRUS 2021-12-21 18:23:00 [facility] ANTIBODY [facility] TMP HCVAB INTERP 2021-12-21 18:23:00 [facility] HEAD NECK SOFT 2021-12-21 16:10:20 Zina Luo [facility] MD Te[facility] OSI US EXTREMITIES 2021-10-23 22:52:00 Daisy Benson [facility] Plan of Care Planned Activity Planned Date Details Comments Source Future Scheduled 2023-03-15 COVID-19 [facility]ACCINE (#[facility] 15:00:05 [code = COVID-19 VACCINE (#1)] Future Scheduled 2023-03-15 [facility] for [facility] Test 15:00:05 malignant neoplasm of cervix (procedure) [code = 762109185] Future Scheduled 2023-03-15 INFLUENZA VACCINE [facility] Test 15:00:05 [code = INFLUENZA VACCINE] Future Scheduled 2022-12-25 COVID-19 Vaccination Uni [facility] [place] Test 09:18:37 (#1) [code = COVID-19 [facility] Vaccination (#1)] Center Future Scheduled 2022-01-18 COVID-19 Vaccination Uni [facility] [place] Test 14:03:45 (1) [code = COVID-19 Uday rson [facility] Vaccination (1)] Center Encounters Start End Encounter Admission Attending Care Care Encounter Source Date/Time Date/Time Type Type Clinicians Facility Department ID 2023-03-19 Outpatient [facility] [id number] [place] 14:04:41 [id number] [facility] 2021-12-31 Outpatient [facility] [id number] [place] 08:22:50 [id number] [facility] 2021-12-04 Outpatient SYSTEM, ABRAHAM ROSARIO [id number] 10:19:10 PROVIDER Feroz o n 2023-01-14 2023-01-14 Outpatient GC_[facility]_ PRIV PRIV [id number] [facility] 00:00:00 00:00:00 Preethi [id number] Medic al 2022-12-31 2022-12-31 Outpatient GC_[facility]_ PRIV PRIV [id number] [facility] 00:00:00 00:00:00 Preethi [id number] Medic al 2022-09-16 2022-09-16 Outpatient R LUIS M PEREZ [facility] B [id number] [facility] 10:00:00 10:00:00 LUIS M PEREZ ity [facility] 2022-01-07 2022-01-07 [facility] [id number] Univers 13:00:00 13:00:00 SHEY ity [facility] 2022-01-07 2022-01-07 [facility]phone [facility] [id number] Univers 00:00:00 00:00:00 Physician Practice [employer] [id number] it y of [place] 4.2.7.2.686 Nilesh as SHY?BLEA [phone] [address] MEDICAL OFFICE BUILDING 2021-12-21 2021-12-21 Hospital MARINO Luo 1.2.840.1 [id number] Univers 12:45:00 23:59:00 Encounter Zina [id number] it y of 3.412.2.7 [place] .3.478082 MD [facility] 2021-12-21 2021-12-21 Outpatient MARINO DAWN [facility] [id number] 14:05:10 14:05:10 CHRISTIE bullock 2021-12-21 2021-12-21 Office Christie Putnam 1.2.840.1 [id number] Univers 09:30:00 13:53:30 Visit Alfie Mills 25036.1.1 ity of 3.412.2.7 [place] .3.945405 MD [facility] 2021-12-21 2021-12-21 Ancillary MARINO Sharpang 1.2.840.1 [id number] Univers 10:30:00 12:30:00 Procedure Zina 34212.1.1 it y of 3.412.2.7 [place] .3.464396 MD Chidi [facility] 2021-12-21 2021-12-21 NPR Porsche Putnam.2.840.1 [id number] Univers 08:30:00 08:57:56 Christie 29317.1.1 ity of 3.412.2.7 [place] .3.994163 MD .8 [facility] 2021-12-21 2021-12-21 Travel 1.2.840.1 [id number] [id number] Univers 00:00:00 00:00:00 [id number] 350.1.13.41 ity of 3.412.2.7 2[place]7.3.698 [place] .3.999863 084.8 MD Hagan8 [facility] 2021-12-19 2021-12-19 Ancillary MARINO Mills, 1.2.840.1 [id number] Univers 20:00:00 20:05:00 Procedure Alfie 30826.1.1 it y of 3.412.2.7 [place] .3.376638 MD Murillo [facility] 2021-12-14 2021-12-14 Telephone Jasmeet, 1.2.840.1 [id number] Univers 00:00:00 00:00:00 Mayra Bullock 11542.1.1 ity of 3.412.2.7 [place] .3.036049 MD [facility]illo [facility] 2021-12-07 2021-12-07 Telephone Travis, 1.2.840.1 [id number] Univers 00:00:00 00:00:00 Dana May 69792.1.1 ity of 3.412.2.7 [place] .3.346824 MD [facility]illo [facility] 2021-12-04 2021-12-04 Simon Luo, 1.2.840.1 [id number] Univers 00:00:00 00:00:00 Only Li-Sarah 88155.1.1 ity of 3.412.2.7 [place] .3.995532 MD [facility]illo [facility] 2021-11-26 2021-11-26 Pre-Evalua Vivek, 1.2.840.1 [id number] Univers 00:00:00 00:00:00 savanna Locke 49779.1.1 i ty of 3.412.2.7 [place] .3.394322 MD [facility]illo [facility] 2021-07-23 2021-07-23 Outpatient ERICKSON_R [facility] [id number] [place] 08:49:00 08:49:00 025 Commun i ty Hosp[facility] Clinics 2021-04-23 2021-05-22 Outpatient RYAN, BL BL [id number] MHBL 11:36:00 23:59:00 RHYS 2021-03-20 2021-04-18 Outpatient RYAN, BL BL [id number] BL 08:41:00 23:59:00 RHYS 2021-04-03 2021-04-03 Emergency E BIPIN, BL BL [id number] MHBL 00:21:00 02:00:00 ABDIWAHAB 2021-03-11 2021-03-14 Inpatient U DANY, [facility] MED [id number] MHBL 22:12:00 15:28:00 LUCRETIA 2020-04-17 2020-04-17 Laboratory Lab, [facility] 1.2.840.114 [id number] 16:20:00 16:40:00 Only Fam Pob I Health 350.1.13.10 [place] 4.2.7.2.686 Professio [phone] [place] [address] Office Building [facility] 2020-04-17 2020-04-17 Laboratory Lab, [facility] 1.2.840.114 [id number] [facility] 16:20:00 16:40:00 Only Fam Pob I Health 350.1.13.10 ity of [place] 4.2.7.2.686 Nilesh as Professio [phone] Ia dical [address] Office Building [facility] 2020-04-17 2020-04-17 Outpatient R [facility] [id number] Univers 16:20:00 16:20:00 ity of [facility] 2020-04-15 2020-04-16 Laboratory Lab, [facility] 1.2.840.114 [id number] 10:20:00 13:48:00 Only Fam Pob I Health 350.1.13.10 [place] 4.2.7.2.686 Professio [id number] [place] [address] Office Building One 2020-04-15 2020-04-16 Laboratory Lab, [facility] Fam Pob I RUST 1.2. 840.114 [id number] Univers 10:20:00 13:48:00 Only Ayanna Lynch 350.1.13.10 ity of [place] 4.2.7.2.686 Nilesh as Professio [phone] [address] One 2020-04-15 2020-04-15 Outpatient R GENARO [facility] [id number] Univers 10:20:00 10:20:00 AYANNA ity [facility] 2020-04-12 2020-04-12 Telephone LORAINE Mills [id number] [facility] 00:00:00 00:00:00 Latia Newsome NABEEL 350.1.13.10 ity of HOSPITAL 4.2.7.2.686 Nilesh as [id number] [address] 2020-04-09 2020-04-09 Outpatient R GENARO [facility] [id number] [facility] 16:40:00 16:40:00 AYANNA palmer [facility] 2020-04-09 2020-04-09 Laboratory Lab, Adc Fam Pob I RUST 1.2. 840.114 [id number] Univers 15:16:22 15:26:16 Only Ayanna Lynch 350.1.13.10 ity of [place] 4.2.7.2.686 Nilesh as Professio [phone] [address] One 2020-04-09 2020-04-09 Letter Doctor BARON 1.2.840.114 [id number] Univers 00:00:00 00:00:00 (Out) UnassignedNABEEL 350.1.13.10 ity of [place] [facility] 4.2.7.2.686 Nilesh as [id number] [address] 2019-07-02 2019-07-02 Out[facility] [id number] Common 16:35:00 16:35:00 t Magno bedolla [facility] 2019-07-02 2019-07-02 Out[facility] [id number] Common 14:11:00 14:11:00 [facility] 2019[facility] 2019-06-03 [facility] [id number] Common 15:40:00 15:40:00 [place] [facility] [facility] 2019-05-24 2019-05-24 Out[facility] [id number] Common 08:02:00 08:02:00 t [place] Spiri t [facility] 2019-05-18 2019-05-18 Outpatient [facility] [id number] Common 07:36:00 07:36:00 t [place] [facility] [place] [facility] 2019-04-27 2019-04-27 Outpatient [facility] [id number] Common 16:25:00 16:25:00 t [place] Spiri t [facility] 2019-04-27 2019-04-27 Outpatient [facility] [id number] [facility] 09:18:00 09:18:00 2019-04-19 2019-04-19 Inpatient U [facility] [id number] [facility] 13:01:00 08:25:00 2019-04-15 2019-04-15 Outpatient E [facility] [id number] [facility] 17:22:00 17:22:00 2019-04-15 2019-04-15 Outpatient [facility] [id number] Common 08:20:00 08:20:00 t [place] Spiri t [facility] 2019-03-22 2019-03-22 Outpatient [facility] [id number] Common 10:03:00 10:03:[address] [facility] 2019-03-21 2019-03-21 Out[facility] [id number] Common 15:45:00 15:45:00 t [place] [facility] 2019-03-21 2019-03-21 Outpatient [facility] [id number] Common 15:42:00 15:42:00 t [place] Spiri t [facility] 2019-03-18 2019-03-18 Outpatient [facility] [id number] Common 10:42:00 10:42:[address] [facility] 2019-03-16 2019-03-16 Out[facility] [id number] Common 17:20:00 17:20:00 t [place] [facility] [facility] 2019-03-15 2019-03-15 Outpatient [facility] [id number] Common 13:20:00 13:20:00 t [place] [facility] 2019-02-08 2019-02-08 Outpatient [facility] [id number] Common 10:11:00 10:11:00 t [place] [facility] 2019-02-08 2019-02-08 Outpatient [facility] [id number] Common 09:05:00 09:05:00 t [place] [facility] 2019-01-08 2019-01-08 Outpatient [facility] [id number] Common 15:19:00 15:19:00 t [place] [facility] [facility] 2018-12-29 2018-12-29 Outpatient [facility] [id number] Common 17:17:00 17:17:00 t [place] Spiri t [facility] 2018-12-29 2018-12-29 Outpatient [facility] [id number] Common 16:40:00 16:40:00 t [place] [facility] 2018-12-14 2018-12-14 Outpatient [facility] [id number] Common 09:57:00 09:57:00 t [place] [facility] [place] [facility] 2018-12-08 2018-12-08 Out[facility] [id number] Common 14:00:00 14:00:00 t [place] [facility] [place] [facility] 2018-11-06 2018-11-06 Out[facility] [id number] Common 12:23:00 12:23:00 t [place] [facility] [place] [facility] 2018-11-06 2018-11-06 Out[facility] [id number] Common 11:04:00 11:04:00 t [place] [facility] [place] [facility] 2018-10-08 2018-10-08 Outpatient [facility] [id number] Common 10:20:00 10:20:00 t [place] [facility] [place] [facility] 2018-10-02 2018-10-02 Outpatient [facility] [id number] Common 17:40:00 17:40:00 t [place] [facility] [place] [facility] 2018-09-07 2018-09-07 Outpatient [facility] [id number] Common 15:00:00 15:00:00 [facility] [place] [facility] 2018-07[facility] 2018-07-13 [facility] [id number] Common 08:00:00 08:00:00 [facility] [place] [facility] 2018-07-06 2018-07-06 [facility] [id number] Common 13:06:00 13:06:00 t [place] [facility] 2018-06-12 2018-06-12 Outpatient [facility] [id number] Common 13:05:00 13:05:00 t [place] [facility] 2018-06-11 2018-06-11 Outpatient [facility] [id number] Common 15:40:00 15:40:00 t [place] [facility] 2018-03-16 2018-03-16 [facility] [id number] Common 11:00:00 11:00:00 t [facility] Results Test Description Test Time Test Comments Results Result Comments Source TMP HCV Ab Path Interp 2021-12-22 13:33:06 Test Item Value Reference Range Interpretation Comme nts HCV Ab There is NO ADRIANA Path serologic MD [place] [id number] by: VINNIE Matthew evidence of MD [place] [id number] Date/Time: (test Hepatitis C 12.22.2021 8:33 AM CDT Transcribed Date/Time: 12.22.2021 8:33 code = virus AM CDTElectroni josette Signed By: VINNIE HICKS [id number]) antibody. MD [place] 143 02 on 12.22.2021 8:33 AM C [facility] [id number] 04:21:05 Test Item Value Reference Range Interpretation Comments HCVAb. (test Non Reactive Non Reactive Antibody detect ion in the code = 5762) immunocompromis ed and immunosuppresse d population may be delayed or absent entirely. There fore serial testing, correl ation with other clinical findings, and supplementa l testing (if available) should be taken into cons ideration when interpreti ng the results.Perform ed at:[facility] Blood Donor [id number] [place] [address] [id number] 54 [facility]2022-03-25 22:21:56 Test Item Value Reference Range Interpretation Comments TSH (test code = 1.66 See_Comment [Automated message] The [id number]) system which ge nerated this result transmit wesly reference range : 0.27 - 4.20 mcunit/mL. The reference range was not used to interpr et this result as brittney l/abnormal. [facility] [id number] 22:21:55 Test Item Value Reference Range Interpretation Comments T4 Free (test code = 3024-7) 1.22 ng/dL 0.93-1.70 [facility]
[2023-03-28] MEDS ORDERED: LORAZEPAM 1 MG TABLET ONE (23:01)
[2023-03-28 23:05] LABS: Absolute Lymphocytes (CBC) 2.8 K/uL (0.7-4.9); Hematocrit 44.3 % (36.0-45.0); Lymphocytes % 24.1 % (15.3-44.8); MCV 90.2 fL (80-100); MPV 9.4 fL (7.6-11.3); RBC Red Blood Cell Count 4.91 M/uL (3.86-4.86)
[2023-03-28 23:27] LABS: Potassium 3.5 mEq/L (3.5-5.1)
[2023-03-28] MEDS ORDERED: IBUPROFEN 400 MG TAB ONE (23:30)
[2023-03-28 23:31] LABS: Thyroid Stimulating Hormone 6.65 uIU/mL (0.358-3.740)
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
[2023-03-29 01:29] VITALS: TEMP 97
[2023-03-29 01:34] VITALS: BP 120/59; O2SAT 96
== END 2023-03-29 01:10 | disposition home or self-care (01) ==
LOC: ER 22:20
DX: F43.0 Acute stress reaction (principal); F41.9 Anxiety disorder, unspecified; Z88.1 Allergy status to other antibiotic agents
CPT/HCPCS: 36415; 80048; 84439; 84443; 85025; 99284

== ENCOUNTER 2024-10-18 18:46 | Emergency (ER) | payer BC ==
--- OUTSIDE RECORDS SUMMARY | 2024-10-18 18:49 | XMS REPORT | Clinical Summary ---
Author Name Unknown Organization [facility] Address [address] [place] [address] Care Team Providers Care Director Of [employer] Name Role Phone Alfie Mills MD Primary Care Provider Johan Marquis MD Unavailable [phone] Allergies No known active allergies Medications ARIPiprazole (ABILIFY) 5 mg tablet daily. 12/13/2021 Active dextroamphetamin e-amphetamine (Adderall XR) 30 mg 24 hr capsule daily. Act miroslava gabapentin (NEURONTIN) 300 mg capsule 3 (three) times a day. 12/13/2021 Active iron-vit C-vit T33-pctha acid (Iron 100 Plus) 829-923-70-1 xm-kv-ano-mg tab daily. 10/15/2021 Ac tive LORazepam (ATIVAN) 0.5 mg tablet as needed. 02/27/2021 Active venlafaxine (EFFEXOR-XR) 37.5 mg 24 hr capsule daily. 11/27/2021 Active venlafaxine 150 MG tr24 daily. 10/09/2021 Active esomeprazole (NexIUM) 40 MG capsule Take 40 mg by mouth as needed. Active cholecalciferol, vitamin D3, (VITAMIN D3) 5,000 units tab tablet Take 400 Units by mouth daily. Active Surgical History Surgery Date Site/Laterality Comments TUBAL [...] Date Smoking Tobacco: Former Smokeless Tobacco: Former Quit: 2019 Comments:smoked since age 15 or 16 Alcohol Use Standard Drinks/Week Comments Not Currently 0 (1 standard drink = 0.6 oz pur e alcohol) Comments Unknown Sex and Gender Information Value Date Recorded Sex Assigned at Female 12/05/2021 11:07 AM LOGISTICS SUPPLY OFFICER Legal Sex Female 2:44 PM LOGISTICS SUPPLY OFFICER Gender Identity Female 12/05/2021 11:07 AM LOGISTICS SUPPLY OFFICER Sexual Orientation Straight 12/05/2021 11 :07 AM LOGISTICS SUPPLY OFFICER Obstetrics History Plan of Treatment Health Maintenance Due Date Last Done Comments COVID-19 Vaccine (2023-2 5 season) 2024 Influenza Vaccine (#1) 2024 Pneumococcal Vaccine: Pediat rics (0 to 5 Years) and At-Risk Patients (6 to 64 Years) Aged Out [facility] to complete this topic Insurance PPO POS OUT OF STATE GENERIC BCBS PPO POS OUT OF STATE GENERIC Care Teams Director Of [employer] Relationship Specialty Start Date End Date Alfie Mills MD [address] [place] [phone] [email or web address] PCP - General Surgical Oncology 12/14/21 Johan Marquis MD [address] [place] [id number] [email or web address] PCP - External Primary Care Provider Internal Medicine 12/21/21
--- NOTE | 2024-10-18 19:39 | RAD REPORT ---
EXAMINATION: CT HEAD WITHOUT CONTRAST CT CERVICAL SPINE WITHOUT CONTRAST CLINICAL INDICATION: Female, 39 years old. headache, blurry vision, s/p neck surgery TECHNIQUE: Axial CT images from the skull base to the vertex without intravenous contrast. Axial CT i mages through the cervical spine were obtained without intravenous contrast. Sagittal and coronal reformatted images were created from the data set. Coronal and sagittal reformatted images were creat ed from the data set. One or more of the following dose reduction techniques were used: Automated exposure control, adjustment of the mA and/or kV according to patient size, and/or iterative reconstr uction. Unless otherwise specified, incidental findings do not require dedicated imaging follow-up. [id number]. COMPARISON: 06/25/2024 FINDINGS: Head: INTRACRANIAL: No acute intracranial hemorrhage. No hydrocephalus. No mass effect or midline shift. No significant white matter disease VASCULATURE: No visualized abnormalities in the arteries or dural venous sinuses. SCALP/SKULL: No significant soft tissue or osseous abnormalities. Prior left orbital floor repair. SINUSES: The visualized paranasal sinuses and mastoid air cells are predominantly clear. Cervical spine: ALIGNMENT: Loss of the normal cervical lordosis. BONE: Status post C3-4 and C5-6 ACDF with interbody spacers. DEGENERATIVE CHANGES: None significant. SOFT TISSUE: Recent postoperative changes from ACDF. Within the limitations of a noncontrast CT, no c omplicating features identified. There is some stranding at the operative site which is not unexpected. IMPRESSION: No acute intracranial abnormality. No acute fracture or traumatic malalignment of the cervical spine. Surgical changes from recent ACDF. No unexpected postoperative changes identified within the limitati ons of a noncontrast CT.
[2024-10-18] MEDS ORDERED: NA CHLORIDE 0.9% 1,000 ML ONE ×2 (19:50→21:03)
[2024-10-18 20:07] LABS: Absolute Basophils 0.1 K/uL (0-0.5); Absolute Eosinophils 0.3 K/uL (0-0.5); Absolute Lymphocytes (CBC) 2.4 K/uL (0.7-4.9); Absolute Monocytes 0.6 K/uL (0.1-1.3); Basophils % 1.2 % (0-1.3); Eosinophils % 2.7 % (0-4.4); Hematocrit 41.4 % (36.0-45.0); Hemoglobin 13.7 g/dL (12.0-15.0); Lymphocytes % 25.4 % (15.3-44.8); MCH 29.4 pg (27.0-35.0); MCHC 33.2 g/dL (32.0-36.0); MCV 88.7 fL (80-100); Monocytes % 6.2 % (3.3-12.3); Neutrophils % 64.5 % (41.7-73.7); Nucleated Red Blood Cells % 0.1 % (0-0); Platelets 377 thou/uL (152-406); RBC Red Blood Cell Count 4.66 M/uL (3.86-4.86); Red Cell Distribution Width 14.1 % (12.1-15.2)
[2024-10-18 20:17] LABS: PT Prothrombin Time 10.1 SECONDS (9.4-12.5); PTT, Activated Partial Thromb 30.3 SECONDS (24.3-36.9); Protime INR 0.96
[2024-10-18 20:18] LABS: SARS-CoV-2 Antigen CONTROL BLUE LINE VIS/BG OK; SARS-CoV-2 Antigen Rapid Res Negative (Negative)
[2024-10-18 20:32] LABS: Albumin 3.3 g/dL (3.4-5.0); Albumin/Globulin Ratio 0.8 (1.1-1.8); Bilirubin Total 0.3 mg/dL (0.2-1.0); C-Reactive Protein 22.8 mg/L (<3.00); Globulin 4.1 g/dL (2.3-3.5); Protein, Total 7.4 g/dL (6.4-8.2)
[2024-10-18 20:33] LABS: Thyroid Stimulating Hormone 4.59 uIU/mL (0.358-3.740)
[2024-10-18] MEDS ORDERED: KETOROLAC 30 MG/ML INJ ONE (21:03)
[2024-10-18] MEDS ORDERED: METOCLOPRAMIDE 10 MG/2mL INJ ONE (21:03)
[2024-10-18] MEDS ORDERED: DIPHENHYDRAMINE 50 MG/ML VIAL ONE ×2 (21:03→21:35)
[2024-10-18 21:10] LABS: Specific Gravity 1.008 (1.005-1.030); Sqamous Epithelial <5 /HPF (None Seen); Urine Bacteria None Seen /HPF (<20); Urine Bilirubin NEGATIVE (Negative); Urine Blood Negative (Negative); Urine Clarity Extremely Turbid (Clear); Urine Color Yellow (Yellow); Urine Crystals Unidentified Few /HPF (None Seen); Urine Culture Reflex Order NOT NEEDED; Urine Glucose NEGATIVE (Negative); Urine Ketones NEGATIVE (Negative); Urine Micro Reflex YN NO BILL MICROSCOPIC; Urine Mucus Slight /HPF (None Seen); Urine Nitrite NEGATIVE (Negative); Urine Protein NEGATIVE (Negative); Urine RBC <5 /HPF (None Seen); Urine Urobilinogen Normal (Normal); Urine WBC <5 /HPF (<5); Urine WBC Clump Rare /HPF (None Seen); Urine Yeast (Budding) Trace /HPF (None Seen)
[2024-10-18] MEDS ORDERED: predniSONE 20 MG TAB ONE (21:34)
--- NOTE | 2024-10-18 21:34 | ER ---
Nurse's Notes [facility] Name: Addis Mcclure Age: 39 yrs Sex: Female : 1985 Arrival Date: 10/18/2024 Time: 18:46 Bed 15 Private MD: Diagnosis: Flushing;Acute low grade fever;Facial plethora Presentation: 10/18 18:56 Chief complaint: Patient states: "I had ACDF surgery on the and now I'm having cm10 blurry vision. My eyes feel hot, and my face feels flushed. I feel flu-marco and I just want to get checked out to see what is going on.". Coronavirus screen: Client denies travel out of the [place] in the last 14 days. Ebola Screen: Patient denies exposure to infectious person. Patient denies travel to an Ebola-affected area in the 21 days before illness onset. Initial Sepsis Screen: Does the patient have a suspected source of infection? No. Patient's initial sepsis screen is negative. Risk Assessment: Do you want to hurt yourself or someone else? Patient reports no desire to harm self or others. Onset of symptoms was October 16, 2023. 18:56 Method Of Arrival: Ambulatory cm10 18:58 Acuity: RAKESH 3 cm10 20:28 Initial Sepsis Screen: Does the patient meet any 2 criteria? HR > 90 bpm. No. Patient's me1 initial sepsis screen is negative. Historical: - Allergies: 18:58 Bactrim; cm10 - PMHx: 18:58 Anxiety; Bipolar disorder; chronic back pain; Depression; cm10 - PSHx: 18:58 Ligation of fallopian tube; ACDS (Ligation of fallopian tube); cm10 - Immunization history:: Adult Immunizations up to date. - Infectious Disease History:: Denies. - Social history:: Smoking status: unknown. Screenin:15 [facility] ED Fall Risk Assessment (Adult) History of falling in the last 3 months, me1 including since admission No falls in past 3 months (0 pts) Confusion or Disorientation No (0 pts) Intoxicated or Sedated No (0 pts) Impaired Gait No (0 pts) Mobility Assist Device Used No (0 pt) Altered Elimination No (0 pt) Score/Fall Risk Level 0 - 2 = Low Risk Maintained a safe environment, Provided non-skid footwear, Hourly rounding (assess needs \\T\\ fall precautionary measures) done. Abuse screen: Denies threats or abuse. Nutritional screening: No deficits noted. Tuberculosis screening: No symptoms or risk factors identified. Assessment: 19:15 General: Appears uncomfortable, well groomed, well developed, well nourished, Behavior me1 is calm, cooperative, appropriate for age, Reports "I had ACDF surgery on the 9th and now I'm having blurry vision. My eyes feel hot, and my face feels flushed. I feel flu-marco and I just want to get checked out to see what is going on.". Pain: Denies pain. Neuro: Level of Consciousness is awake, alert, obeys commands, Oriented to person, place, time, situation, Appropriate for age. Cardiovascular: Patient's skin is warm and dry. Respiratory: Airway is patent Respiratory effort is even, unlabored, Respiratory pattern is regular, symmetrical. GI: No signs and/or symptoms were reported involving the gastrointestinal system. : No signs and/or symptoms were reported regarding the genitourinary system. EENT: Reports eyes feel hot and vision is blurry. Derm: Skin is intact, is healthy with good turgor, Skin is dry, Skin is flushed. Musculoskeletal: No signs and/or symptoms reported regarding the musculoskeletal system. 21:00 General: Appears in no apparent distress. comfortable. Pain: Complains of pain in head rg5 Quality of pain is described as aching. 21:00 Neuro: Level of Consciousness is awake, alert, obeys commands. Cardiovascular: rg5 Patient's skin is warm and dry. Respiratory: Airway is patent Trachea midline Respiratory effort is even, unlabored, Respiratory pattern is regular, symmetrical. GI: No signs and/or symptoms were reported involving the gastrointestinal system. GI: No signs and/or symptoms were reported involving the gastrointestinal system. : No signs and/or symptoms were reported regarding the genitourinary system. EENT: Reports blurred vision. Derm: Skin is intact, is healthy with good turgor, Skin is dry, Skin is normal. Musculoskeletal: Circulation, motion, and sensation intact. Range of motion: intact in all extremities. 22:00 Reassessment: No changes from previously documented assessment. Patient and/or family rg5 updated on plan of care and expected duration. Pain level reassessed. Patient states feeling better. Patient states symptoms have improved. Vital Signs: 18:56 Weight 131.54 kg; Height 5 ft. 3 in. ; Pain 7/10; cm10 19:30 BP 141 / 99; Pulse 117; Resp 16; Pulse Ox 97% ; me1 20:00 BP 133 / 80; Pulse 107; Resp 16; Pulse Ox 96% ; me1 21:00 BP 142 / 81; Pulse 109; Temp 97.7(O); Pulse Ox 100% on R/A; Pain 7/10; rg5 22:00 BP 132 / 77; Pulse 99; Resp 18; Temp 98(O); Pain 3/10; rg5 18:56 Body Mass Index 51.37 (131.54 kg, 160.02 cm) cm10 18:56 Pain Scale: Adult cm10 21:00 Pain Scale: Adult rg5 22:00 Pain Scale: Adult rg5 Visual Acuity: 20:23 Left Eye Visual acuity 20/40, ; Right Eye Visual acuity 20/20, ; With Lenses; me1 ED Course: 18:48 Patient arrived in ED. ra3 18:50 Elisha Corona PA-C is PHCP. sb4 18:50 Onel Valdez MD is Attending Physician. sb4 18:58 Triage completed. cm10 18:58 Arm band placed on right wrist. cm10 19:15 Patient has correct armband on for positive identification. Bed in low position. Call me1 light in reach. Side rails up X2. Provided Education on: POC. Verbalized understanding.. Client placed on continuous cardiac and pulse oximetry monitoring. NIBP monitoring applied. casino floor runner on. Pulse ox on. NIBP on. 19:15 No provider procedures requiring assistance completed. me1 19:19 Leigh Ann Garcia, RN is Primary Nurse. me1 19:25 Head C Spine MPR Wo Con CT In Process Unspecified. EDMS 19:43 First set of blood cultures drawn by me. oe 19:50 Inserted saline lock: 22 gauge in left antecubital area, using aseptic technique. Blood oe collected. Flushed with 10 mL NS. 20:00 Second set of blood cultures drawn by me. oe 20:02 Initial lab(s) drawn, by ED staff, sent to lab. COVID swab sent to lab. Flu and/or RSV me1 swab sent to lab. 21:13 Attending Physician role handed off by Onel Valdez MD sp4 21:13 Prince Shoemaker MD is Attending Physician. sp4 22:07 IV discontinued, bleeding controlled, No redness/swelling at site. Pressure dressing rg5 applied. Administered Medications: 20:02 Drug: NS 0.9% IV 1000 ml IV at 1000 ml once; to be given as a bolus over 60 minutes me1 Route: IV; Rate: 1000 ml; Site: left antecubital; 21:00 Follow up: IV Status: Completed infusion; IV Intake: 1000ml rg5 21:05 Drug: NS 0.9% IV 1000 ml IV at 1 bolus Per protocol; to be given as a bolus over 60 rg5 minutes Route: IV; Rate: 1 bolus; Site: left antecubital; 22:00 Follow up: IV Status: Completed infusion; IV Intake: 1000ml rg5 21:05 Drug: Ketorolac IVP 15 mg IVP once Route: IVP; Site: left antecubital; rg5 21:48 Follow up: Response: No adverse reaction; Pain is decreased rg5 21:10 Drug: diphenhydrAMINE IVP 25 mg IVP once Route: IVP; Site: left antecubital; rg5 21:48 Follow up: Response: No adverse reaction rg5 21:10 Drug: metoCLOPramide IVP 10 mg IVP once; over 1 to 2 minutes Route: IVP; Site: left rg5 antecubital; 21:48 Follow up: Response: No adverse reaction rg5 21:35 Drug: [place] PO 10 mg-325 mg 1 tabs PO once Route: PO; rg5 22:09 Follow up: Response: No adverse reaction; Pain is decreased rg5 21:35 Drug: diphenhydrAMINE IVP 25 mg IVP once Route: IVP; Site: left antecubital; rg5 22:08 Follow up: Response: No adverse reaction rg5 21:35 Drug: predniSONE PO 60 mg PO once Route: PO; rg5 22:08 Follow up: Response: No adverse reaction rg5 Medication: 19:15 VIS not applicable for this client. me1 Intake: 21:00 IV: 1000ml; Total: 1000ml. rg5 22:00 IV: 1000ml; Total: 2000ml. rg5 Outcome: 21:34 Discharge ordered by MD. sb4 22:07 Discharged to home ambulatory, rg5 22:07 Condition: stable 22:07 Discharge instructions given to patient, Instructed on discharge instructions, follow up and referral plans. Demonstrated understanding of instructions, follow-up care, medications, Prescriptions given X 2, 22:08 Patient left the ED. rg5 Signatures: Dispatcher [employer] EDMS Hiren Ritchie oe Elisha Corona PA-C PA-C sb4 Prince Shoemaker MD MD sp4 Heena Paiz RN RN cm10 Leigh Ann Garcia RN RN me1 Helen Mary ra3 Eduardo Bill, RN RN rg5 Corrections: (The following items were deleted from the chart) 20:27 20:00 Inserted saline lock: 22 gauge in left antecubital area, using aseptic technique. oe Blood collected. Flushed with 10 mL NS oe 20:28 18:56 Chief complaint: Patient states: "I had ACDF surgery on the and now I'm me1 having blurry vision. My eyes feel hot, and my face feels flushed. I feel flu-marco and I just want to get checked out to see what is going on." cm10
--- NOTE | 2024-10-18 21:34 | EDPHYS ---
Physician Documentation [facility] Name: Addis Mcclure Age: 39 yrs Sex: Female : 1985 Arrival Date: 10/18/2024 Time: 18:46 Bed 15 Private MD: ED Physician Prince Shoemaker HPI: 10/18 19:21 This 39 yrs old Female presents to ER via Ambulatory with complaints of Blurred Vision sb4 - x2days. 19:21 Patient reports blurry vision, face feeling hot, and low-grade fever x 2 days. States sb4 that she has also had an intermittent headache. States that she had ACDS surgery 11 days ago and has been recovering well. She also reports nausea that began today. States she was seen by her PCP recently and told she had low iron, low vitamin D, and has Kari's. She was started on levothyroxine yesterday. Historical: - Allergies: 18:58 Bactrim; cm10 - PMHx: 18:58 Anxiety; Bipolar disorder; chronic back pain; Depression; cm10 - PSHx: 18:58 Ligation of fallopian tube; ACDS (Ligation of fallopian tube); cm10 - Immunization history:: Adult Immunizations up to date. - Infectious Disease History:: Denies. - Social history:: Smoking status: unknown. ROS: 19:21 Cardiovascular: Negative for chest pain, palpitations, and edema, sb4 19:21 Constitutional: Positive for fever, malaise, 19:21 Eyes: Positive for blurry vision, 19:21 Neuro: Positive for headache, visual changes, 19:21 All other systems are negative, Exam: 19:23 Head/Face: Normocephalic, atraumatic. Eyes: Extra-ocular motions intact. Periorbital sb4 areas with no swelling, redness, or edema. ENT: Mucous membranes moist. Cardiovascular: Regular rate and rhythm with a normal S1 and S2. Respiratory: No increased work of breathing, no retractions or nasal flaring. Abdomen/GI: Soft, non-tender, no distension. Skin: Warm, dry with normal turgor. Normal color with no rashes, no lesions, and no evidence of cellulitis. 19:23 Constitutional: The patient appears in no acute distress, alert, awake, 19:23 Eyes: Pupils: equal, round, and reactive to light and accomodation, Extraocular movements: intact throughout, funduscopic exam reveals no appreciated papilledema, no appreciated A-V knicking, Visual sterling: are intact, 19:23 Skin: Appearance: Color: pink, flushed, 21:35 Radiologist reports: negative sb4 Vital Signs: 18:56 Weight 131.54 kg; Height 5 ft. 3 in. ; Pain 7/10; cm10 19:30 BP 141 / 99; Pulse 117; Resp 16; Pulse Ox 97% ; me1 20:00 BP 133 / 80; Pulse 107; Resp 16; Pulse Ox 96% ; me1 21:00 BP 142 / 81; Pulse 109; Temp 97.7(O); Pulse Ox 100% on R/A; Pain 7/10; rg5 22:00 BP 132 / 77; Pulse 99; Resp 18; Temp 98(O); Pain 3/10; rg5 18:56 Body Mass Index 51.37 (131.54 kg, 160.02 cm) cm10 18:56 Pain Scale: Adult cm10 21:00 Pain Scale: Adult rg5 22:00 Pain Scale: Adult rg5 Visual Acuity: 20:23 Left Eye Visual acuity 20/40, ; Right Eye Visual acuity 20/20, ; With Lenses; me1 MDM: 18:52 Medical Screening Exam initiated sb4 21:33 Data reviewed: vital signs, nurses notes, lab test result(s), radiologic studies, I sb4 have discussed the patient's presentation/case with the attending Emergency Department Physician; and as a result, I will discharge patient. Counseling: I had a detailed discussion with the patient and/or guardian regarding the historical points, exam findings, and any diagnostic results supporting the discharge/admit diagnosis, the presence of at least one elevated blood pressure reading (>120/80) during this emergency department visit, lab results, radiology results, the need for outpatient follow up, surgeon, to return to the emergency department if symptoms worsen or persist or if there are any questions or concerns that arise at home. 21:42 ED course: attending physician reviewed results, examined patient, and spoke with 4 neurosurgeon who operated on patient- recommended prednisone and Benadryl and discharge home with follow up. 21:58 Differential Diagnosis altered mental status, sepsis, flu. ED course: Patient was sp4 discussed with Dr. Sami Knapp with neurosurgery. At this time we do not see any emergent or dangerous problems. I was immediately available for consultation during this patient's visit. I did not personally see the patient or discuss the patient with the OMER. Patient is fully neurologically intact on examination. Postoperative left neck incision is clean dry and intact. Hardware on CT appears intact. Influenza test is negative. Patient may have common cold with low-grade fevers or she may also have reaction to anesthetics that were administered 11 days ago. At this time we will initiate prednisone 60 mg initial dose and 40 mg daily for the next 5 days. Also Benadryl for redness 25 mg p.o. 3 times a day. At this time patient is stable for discharge home.. 10/18 19:17 Order name: Blood Culture Adult (2) sb4 10/18 19:17 Order name: CBC with Diff; Complete Time: 20:19 sb4 10/18 19:17 Order name: CMP; Complete Time: 20:47 sb4 10/18 19:17 Order name: Lactate w/ 2H reflex if indic.; Complete Time: 20:25 sb4 10/18 19:17 Order name: Protime (+inr); Complete Time: 20:19 sb4 10/18 19:17 Order name: Ptt, Activated; Complete Time: 20:19 sb4 10/18 19:17 Order name: CRP; Complete Time: 20:47 sb4 10/18 19:17 Order name: Test, Serum; Complete Time: 20:19 sb4 10/18 19:17 Order name: Flu; Complete Time: 20:19 sb4 10/18 19:17 Order name: SARS RAPID; Complete Time: 20:19 sb4 10/18 19:17 Order name: TSH; Complete Time: 20:47 sb4 10/18 20:17 Order name: Glucose, Ancillary Testing; Complete Time: 20:19 EDMS 10/18 20:29 Order name: Ghost Lactate-NO COLLECT Timer EDMS 10/18 20:36 Order name: T4 Free; Complete Time: 20:47 EDMS 10/18 20:48 Order name: UAM; Complete Time: 21:13 sb4 10/18 19:17 Order name: Head C Spine MPR Wo Con CT; Complete Time: 19:42 sb4 01/20 19:17 Order name: Accucheck; Complete Time: 20:04 sb4 10/18 19:17 Order name: Cardiac monitoring; Complete Time: 20:02 sb4 10/18 19:17 Order name: IV Saline Lock - Large Bore; Complete Time: 20:02 sb4 10/18 19:17 Order name: Labs collected and sent; Complete Time: 20:02 sb4 10/18 19:17 Order name: O2 Per Protocol; Complete Time: 20:02 sb4 10/18 19:17 Order name: O2 Sat Monitoring; Complete Time: 20:02 sb4 10/18 19:17 Order name: Vital Signs; Complete Time: 20:02 sb4 10/18 19:23 Order name: Visual Acuity; Complete Time: 20:22 sb4 Administered Medications: 20:02 Drug: NS 0.9% IV 1000 ml IV at 1000 ml once; to be given as a bolus over 60 minutes me1 Route: IV; Rate: 1000 ml; Site: left antecubital; 21:00 Follow up: IV Status: Completed infusion; IV Intake: 1000ml rg5 21:05 Drug: NS 0.9% IV 1000 ml IV at 1 bolus Per protocol; to be given as a bolus over 60 rg5 minutes Route: IV; Rate: 1 bolus; Site: left antecubital; 22:00 Follow up: IV Status: Completed infusion; IV Intake: 1000ml rg5 21:05 Drug: Ketorolac IVP 15 mg IVP once Route: IVP; Site: left antecubital; rg5 21:48 Follow up: Response: No adverse reaction; Pain is decreased rg5 21:10 Drug: diphenhydrAMINE IVP 25 mg IVP once Route: IVP; Site: left antecubital; rg5 21:48 Follow up: Response: No adverse reaction rg5 21:10 Drug: metoCLOPramide IVP 10 mg IVP once; over 1 to 2 minutes Route: IVP; Site: left rg5 antecubital; 21:48 Follow up: Response: No adverse reaction rg5 21:35 Drug: [place] PO 10 mg-325 mg 1 tabs PO once Route: PO; rg5 22:09 Follow up: Response: No adverse reaction; Pain is decreased rg5 21:35 Drug: diphenhydrAMINE IVP 25 mg IVP once Route: IVP; Site: left antecubital; rg5 22:08 Follow up: Response: No adverse reaction rg5 21:35 Drug: predniSONE PO 60 mg PO once Route: PO; rg5 22:08 Follow up: Response: No adverse reaction rg5 Disposition: 21:58 Co-signature as Attending Physician, Prince Shoemaker MD I agree with the assessment sp4 and plan of care. I reviewed the patient's care provided by Advanced Practice Provider \T\ agree w/ the diagnosis \T\ care plan. I personally saw the pt \T\ performed a substantive portion of the visit, incldng all aspects of the (History/Exam/Medical Decision Making). Disposition Summary: 10/18/24 21:34 Discharge Ordered Notes: Location: Home sb4 Problem: new sb4 Symptoms: have improved sb4 Condition: Stable sb4 Diagnosis - Flushing sb4 - Acute low grade fever sb4 - Facial plethora sb4 Followup: sb4 - With: Emergency Department - When: As needed - Reason: Trouble breathing, Worsening of condition Discharge Instructions: - Discharge Summary Sheet sb4 - Fever, Adult, [id number] sb4 Forms: - Patient Portal Instructions sb4 - Leadership Thank You Letter sb4 Prescriptions: - Benadryl 25 mg Oral capsule - take 1 capsule ORAL route every 8 hours As needed; 30 tablet; Refills: 0, sb4 Product Selection Permitted - Prednisone 20 mg Oral Tablet - take 2 tablets ORAL route once daily for 5 days; 10 tablet; Refills: 0, Product sb4 Selection Permitted Signatures: Dispatcher [employer] Elisha Dean PA-C PA-C sb4 Prince Shoemaker MD MD sp4 Heena Paiz, RN RN cm10 Leigh Ann Garcia, RN RN me1 Eduardo Bill, RN RN rg5 Corrections: (The following items were deleted from the chart) 19:17 19:17 BLOOD CULTURE*+BA.LAB.BRZ ordered. EDMS EDMS 19:17 19:17 CBC+H.LAB.BRZ ordered. EDMS EDMS 19:17 19:17 COMPREHENSIVE METABOLIC PANEL+C.LAB.BRZ ordered. EDMS EDMS 19:17 19:17 LACTATE+C.LAB.BRZ ordered. EDMS EDMS 19:17 19:17 PROTIME (+INR)+COAG.LAB.BRZ ordered. EDMS EDMS 19:17 19:17 PTT, ACTIVATED+COAG.LAB.BRZ ordered. EDMS EDMS 19:17 19:17 C-REACTIVE PROTEIN+C.LAB.BRZ ordered. EDMS EDMS 19:17 19:17 TEST, SERUM+SC.LAB.BRZ ordered. EDMS EDMS 19:17 19:17 Influenza Screen (A \T\ B)+BA.LAB.BRZ ordered. EDMS EDMS 19:17 19:17 SARS-COV-2 Antigen Rapid+I.LAB.BRZ ordered. EDMS EDMS 19:17 19:17 THYROID STIMULAT HORMONE+C.LAB.BRZ ordered. EDMS EDMS 19:17 19:17 Head C Spine MPR Wo Con+CT.RAD.BRZ ordered. EDMS EDMS
[2024-10-18] MEDS ORDERED: HYDROCODONE/APAP 10/325 TAB ONE (21:35)
[2024-10-18 23:20] VITALS: O2SAT 100
[2024-10-18 23:29] VITALS: BP 132/77; TEMP 98
== END 2024-10-18 22:08 | disposition home or self-care (01) ==
LOC: ER 18:46
DX: R23.2 Flushing (principal); R50.9 Fever, unspecified; H53.8 Other visual disturbances; Z11.52 Encounter for screening for COVID-19
CPT/HCPCS: 96361; 87040 ×2; 85025; 81001; 36415; 84703; 85610; 82947; 83605; 85730; 84443; 84439; 80053; 86140; 87804 ×2; 70450; 72125; 96375; 96374; 99285; 87811; J7512; J2765; J1200 ×2; J7030 ×2

== ENCOUNTER 2025-05-25 09:01 | Emergency (ER) | payer BC ==
--- OUTSIDE RECORDS SUMMARY | 2025-05-25 09:04 | XMS REPORT | Clinical Summary ---
Author Name Unknown Organization [facility] Address [address] [place] [address] Care Team Providers Care Battery Tester And Repairer Name Role Phone Alfie Mills MD Primary Care Provider [phone] Johan Marquis MD Unavailable [phone] Allergies No known active allergies Medications ARIPiprazole (ABILIFY) 5 mg tablet daily. 12/13/2021 Active dextroamphetamin e-amphetamine (Adderall XR) 30 mg 24 hr capsule daily. Act miroslava gabapentin (NEURONTIN) 300 mg capsule 3 (three) times a day. 12/13/2021 Active iron-vit C-vit I01-bvplk acid (Iron 100 Plus) [id number] gv-jd-vuf-mg tab daily. 10/15/2021 Ac tive LORazepam (ATIVAN) [...] Sex Assigned at Female 12/05/2021 11:07 AM TYPEWRITER ALIGNER Legal Sex Female 2:44 PM TYPEWRITER ALIGNER Gender Identity Female 12/05/2021 11:07 AM TYPEWRITER ALIGNER Sexual Orientation Straight 12/05/2021 11 :07 AM TYPEWRITER ALIGNER Obstetrics History Plan of Treatment Health Maintenance Due Date Last Done Comments COVID-19 Vaccine (2023-2 5 season) 2024 Influenza Vaccine (#1) 2025 Pneumococcal Vaccine Aged Out No long er eligible based on patient's age to complete this topic Insurance BCBS PPO POS OUT OF STATE GENERIC BCBS PPO POS OUT OF STATE GENERIC Care Teams Battery Tester And Repairer Relationship Specialty Start Date End Date Alfie Mills MD [address] [place] [id number] [email or web address] PCP - General Surgical Oncology 12/14/21 Johan Marquis MD [address] [place] [phone] [email or web address] PCP - External Primary Care Provider Internal Medicine 12/21/21
[2025-05-25] MEDS ORDERED: NA CHLORIDE 0.9% 1,000 ML ONE (09:32)
[2025-05-25 10:02] LABS: PT Prothrombin Time 14.9 SECONDS (10-13.0); Protime INR 1.33
[2025-05-25 10:10] LABS: Absolute Lymphocytes (CBC) 2.1 K/uL (0.7-4.9); Hematocrit 40.6 % (36.0-45.0); Hemoglobin 13.8 g/dL (12.0-15.0); MCH 30.0 pg (27.0-35.0); MCHC 34.0 g/dL (32.0-36.0); MCV 88.3 fL (80-100); MPV 8.5 fL (7.6-11.3); Nucleated RBC Absolute Count 0.0 (0-0); Nucleated Red Blood Cells % 0.1 % (0-0); RBC Red Blood Cell Count 4.61 M/uL (3.86-4.86); White Blood Count 7.80 thou/uL (4.3-10.9)
[2025-05-25] MEDS ORDERED: ONDANSETRON 4 MG/2 ML VIAL ONE (10:20)
[2025-05-25] MEDS ORDERED: MORPHINE 4 MG/ML SYR ONE (10:20)
[2025-05-25 10:26] LABS: ALT/SGPT 26 U/L (13-56); AST/SGOT < 10 U/L (15-37); Albumin 3.9 g/dL (3.4-5.0); Albumin/Globulin Ratio 1.1 (1.1-1.8); Alkaline Phosphatase 62 U/L (45-117); Anion Gap 9.9 mEq/L (5.0-15.0); BUN Blood Urea Nitrogen 16 mg/dL (7-18); Bilirubin Indirect, Calculated 0.1 mg/dL (0.2-0.8); Globulin 3.7 g/dL (2.3-3.5); Glucose Level 95 mg/dL (74-106); Lipase 71 U/L (13-75); Magnesium 1.9 mg/dL (1.6-2.4); NT PRO-BNP 26 pg/mL (<125); Potassium 3.9 mEq/L (3.5-5.1); Troponin High Sensitivity < 3.0 pg/mL (<58.9)
--- NOTE | 2025-05-25 11:54 | RAD REPORT ---
EXAMINATION: CT Abdomen Pelvis W Contrast CLINICAL INDICATION: Female, 39 years old. ABD PAIN TECHNIQUE: CT abdomen and pelvis was performed, after the administration of IV contrast, as per [facility] protocol. Axial, sagittal and coronal reconstructions were obtained. One or more of the following dose reduction techniques were used: Automated exposure control, adjustment of the mA and k V according to patient size, and iterative reconstruction. Unless otherwise specified, incidental findings do not require dedicated imaging follow-up. COMPARISON: No prior exam. FINDINGS: LOWER CHEST: The visualized lung bases are clear. LIVER: Normal in size and contour. No focal lesion. BILIARY SYSTEM: No suspicious abnormalities. SPLEEN: Normal size. No focal lesion. PANCREAS: No mass, ductal dilation, or christian-pancreatic fluid. ADRENALS: Normal; no mass. KIDNEYS: Normal size and contour. No hydronephrosis. URINARY BLADDER: Unremarkable. GASTROINTESTINAL TRACT: No evidence of free air, significant intra-abdominal free fluid, bowel obstru ction or abscess. APPENDIX: Normal appendix. LYMPH NODES: No lymphadenopathy. MUSCULOSKELETAL: No acute or suspicious osseous abnormality. ADDITIONAL FINDINGS: Bilateral tubal occlusion devices in place. IMPRESSION: No acute or concerning abnormalities seen in the abdomen or pelvis.
--- NOTE | 2025-05-25 12:08 | RAD REPORT ---
EXAM: CT Chest For Pe Angio TECHNIQUE: CT angiogram of the chest was performed following intravenous contrast administration, inc luding sagittal and coronal as well as maximum intensity projection reformats. One or more of the following dose reduction techniques were used: Automated exposure control, adjustment of the mA and k V according to patient size, and iterative reconstruction. Unless otherwise specified, incidental findings do not require dedicated imaging follow-up. INDICATION: Chest pain;Dyspnea COMPARISON: 05/25/2025 chest radiograph. FINDINGS: LINES/TUBES: None. PULMONARY ARTERIES: Main pulmonary arteries are normal in caliber. No filling defects within the pul monary arteries to suggest pulmonary embolus. LUNGS AND AIRWAYS: The lungs and central airways are normal without focal abnormality. PLEURA: No effusion or pneumothorax. HEART AND MEDIASTINUM: The visualized thyroid gland is normal. No mediastinal, hilar, or axillary lym phadenopathy. Heart is unremarkable. No pericardial effusion. SOFT TISSUES AND BONES: No acute osseous abnormality. No significant soft tissue finding. UPPER ABDOMEN: Diffuse hepatic parenchymal hypoattenuation suggesting steatosis. IMPRESSION: No evidence of acute central pulmonary emboli. No suspicious intrathoracic findings..
--- NOTE | 2025-05-25 12:09 | RAD REPORT ---
EXAMINATION: ONE VIEW CHEST XR CLINICAL INDICATION: Female, 39 years old.,Chest pain;Dyspnea TECHNIQUE: Frontal chest projection is submitted. Examination is limited by patient positioning and t echnique. COMPARISON: 07/11/2021 FINDINGS: The lungs are well inflated and clear. No pneumothorax or sizable effusion. The heart is normal in s ize. Mediastinal contours are unremarkable. IMPRESSION: No acute intrathoracic abnormalities.
--- NOTE | 2025-05-25 12:22 | ER ---
Nurse's Notes [facility] Name: Addis Mcclure Age: 39 yrs Sex: Female : 1985 Arrival Date: 05/25/2025 Time: 09:01 Bed 4 Private MD: Diagnosis: Acute embolism and thrombosis of unspecified deep veins of left lower extremity Presentation: 05/25 09:15 Chief complaint: Patient states: Dx with DVT to left lower extremity yesterday, jl7 increasing SOB. Coronavirus screen: At this time, the client does not indicate any symptoms associated with coronavirus-19. Ebola Screen: No symptoms or risks identified at this time. Initial Sepsis Screen: Does the patient meet any 2 criteria? No. Patient's initial sepsis screen is negative. Does the patient have a suspected source of infection? No. Patient's initial sepsis screen is negative. Risk Assessment: Do you want to hurt yourself or someone else? Patient reports no desire to harm self or others. Onset of symptoms is unknown. 09:15 Method Of Arrival: Wheelchair jl7 09:15 Acuity: RAKESH 2 jl7 Triage Assessment: 12:52 Respiratory: ph Historical: - Allergies: 09:17 Bactrim; jl7 - PMHx: 09:17 Anxiety; Bipolar disorder; chronic back pain; Depression; Hypertensive disorder; jl7 Hypothyroidism; DVT (April 2025); - PSHx: 09:17 ACDS (on); Ligation of fallopian tube; jl7 - Immunization history:: Adult Immunizations unknown. - Infectious Disease History:: Denies. - Social history:: Smoking status: Patient/guardian denies using tobacco, the patient reports quitting approximately 2 years ago. Screenin:30 [facility] ED Fall Risk Assessment (Adult) History of falling in the last 3 months, af3 including since admission No falls in past 3 months (0 pts) Confusion or Disorientation No (0 pts) Intoxicated or Sedated No (0 pts) Impaired Gait No (0 pts) Mobility Assist Device Used No (0 pt) Altered Elimination No (0 pt) Score/Fall Risk Level 0 - 2 = Low Risk Oriented to surroundings, Maintained a safe environment. Abuse screen: Denies threats or abuse. Denies injuries from another. Nutritional screening: No deficits noted. Tuberculosis screening: No symptoms or risk factors identified. Assessment: 09:30 General: Appears in no apparent distress. uncomfortable, well groomed, well developed, af3 Behavior is calm, cooperative, appropriate for age. Pain: Complains of pain in left leg Pain radiates to back of left leg Quality of pain is described as sharp, shooting, Pain began yesterday. 09:30 Neuro: Level of Consciousness is awake, alert, obeys commands, Oriented to person, af3 place, time, situation, Appropriate for age. Cardiovascular: Patient's skin is warm and dry. Rhythm is sinus rhythm. Respiratory: Reports shortness of breath since yesterday Airway is patent Respiratory effort is even, unlabored, Respiratory pattern is regular, symmetrical. GI: No signs and/or symptoms were reported involving the gastrointestinal system. : No signs and/or symptoms were reported regarding the genitourinary system. EENT: No signs and/or symptoms were reported regarding the EENT system. Derm: Skin is intact, Skin is pink, warm \T\ dry. Musculoskeletal: Circulation, motion, and sensation intact. Range of motion: intact in all extremities. 10:36 Reassessment: Patient appears in no apparent distress at this time. Patient and/or af3 family updated on plan of care and expected duration. Pain level reassessed. Patient is alert, oriented x 3, equal unlabored respirations, skin warm/dry/pink. feeling better, currently 4/10 pain. 12:22 Reassessment: Patient appears in no apparent distress at this time. Patient and/or ph family updated on plan of care and expected duration. Pain level reassessed. Patient is alert, oriented x 3, equal unlabored respirations, skin warm/dry/pink. Vital Signs: 09:15 BP 126 / 64; Pulse 85; Resp 17; Temp 98.8; Pulse Ox 100% ; Weight 132.9 kg; Height 5 jl7 ft. 3 in. ; Pain 4/10; 09:51 BP 123 / 64; Pulse 69; Pulse Ox 97% on R/A; af3 10:34 BP 124 / 87; Pulse 74; Resp 18; Pulse Ox 98% on R/A; af3 11:30 BP 134 / 74; Pulse 81; Resp 18; Pulse Ox 100% on R/A; ph 12:20 BP 132 / 67; Pulse 84; Resp 18; Pulse Ox 100% on R/A; ph 09:15 Body Mass Index 51.90 (132.90 kg, 160.02 cm) jl7 09:15 Pain Scale: Adult 7 ED Course: 09:06 Patient arrived in ED. cj3 09:07 Faisal Weir FNP-C is [facility]. jl7 09:16 Triage completed. jl7 09:17 Arm band placed on right wrist. jl7 09:28 Initial lab(s) drawn, by me, sent to lab. EKG done, by ED staff, reviewed by Faiasl ALEX. Inserted saline lock: 20 gauge in right antecubital area, using aseptic technique. Blood collected. Flushed with 10 mL NS. 09:30 Patient has correct armband on for positive identification. Bed in low position. Call af3 light in reach. Provided Education on: lab times, call light use . 09:30 No provider procedures requiring assistance completed. af3 09:53 XRAY Chest (1 view) In Process Unspecified. EDMS 10:07 Karey Thompson, RN is Primary Nurse. ph 11:01 CT Chest For PE Angio In Process Unspecified. EDMS 11:01 CT Abd/Pelvis - IV Contrast Only In Process Unspecified. EDMS 12:21 Ace Tejada MD is Attending Physician. dr5 12:53 IV discontinued, intact, bleeding controlled, No redness/swelling at site. Pressure ph dressing applied. Administered Medications: 09:51 Drug: NS 0.9% IV 1000 ml IV at 1000 ml once; to be given as a bolus over 60 minutes af3 Route: IV; Rate: 1000 ml; Site: left antecubital; 10:30 Follow up: Response: No adverse reaction; IV Status: Completed infusion; IV Intake: ph 1000ml 10:33 Drug: morphine IVP or IV 4 mg IVP once over 4 mins Route: IVP; Infused Over: 4 mins; af3 Site: left antecubital; 11:00 Follow up: Response: No adverse reaction; Pain is decreased; RASS: Alert and Calm (0) ph 10:33 Drug: Ondansetron IVP 4 mg IVP once; over 2 minutes Route: IVP; Site: left antecubital; af3 11:00 Follow up: Response: No adverse reaction ph Medication: 09:30 VIS not applicable for this client. af3 Intake: 10:30 IV: 1000ml; Total: 1000ml. ph Outcome: 12:21 Discharge ordered by . dr5 12:52 Discharged to home ambulatory, ph 12:52 Condition: stable 12:52 Discharge instructions given to patient, Instructed on discharge instructions, follow up and referral plans. Demonstrated understanding of instructions, follow-up care, Prescriptions given X 1, 12:54 Patient left the ED. ph Signatures: Dispatcher [employer] EDKarey Harris RN RN ph Zoe Still RN RN jl7 Sarah Figueroa RN RN af3 Faisal Weir, CLEANING TECHNICIAN-C CLEANING TECHNICIAN-Cdr5 Marylou Ndiaye cj3 Corrections: (The following items were deleted from the chart) 09:46 09:28 Inserted saline lock: 22 gauge in right antecubital area, using aseptic af3 technique. Blood collected. Flushed with 10 mL NS af3 12:54 12:53 Patient did not have IV access during this emergency room visit. ph ph 12:56 12:52 Discharge instructions given to patient, Instructed on discharge instructions, ph follow up and referral plans. Demonstrated understanding of instructions, follow-up care, ph
--- NOTE | 2025-05-25 12:22 | EDPHYS ---
Physician Documentation [facility] Name: Addis Mcclure Age: 39 yrs Sex: Female : 1985 Arrival Date: 05/25/2025 Time: 09:01 Bed 4 Private MD: Ace Bliss HPI: 05/25 09:41 This 39 yrs old Female presents to ER via Wheelchair with complaints of dr5 Abnormal Lab Results, Shortness Of Breath. 09:41 Onset: The symptoms/episode began/occurred 1 week(s) ago. Patient is a 39-year-old dr5 female with history anxiety, bipolar, chronic back pain, depression, hypertension, hypothyroidism coming in by Dr. Marquis for CT scan to rule out PE. Patient has taken 2 doses of Eliquis 10 mg since yesterday. Patient was in office and found to have DVT of left upper leg yesterday. Patient denies abdominal pain, nausea, vomiting, diarrhea. Patient reports that she has had intermittent chest pain and shortness of breath for the last week. Patient is not on control, stopped smoking 2 months ago. Will obtain CT PE scan given patient's DVT.. Historical: - Allergies: 09:17 Bactrim; jl7 - PMHx: 09:17 Anxiety; Bipolar disorder; chronic back pain; Depression; Hypertensive disorder; jl7 Hypothyroidism; DVT (April 2025); - PSHx: 09:17 ACDS (on); Ligation of fallopian tube; jl7 - Immunization history:: Adult Immunizations unknown. - Infectious Disease History:: Denies. - Social history:: Smoking status: Patient/guardian denies using tobacco, the patient reports quitting approximately 2 years ago. ROS: 09:41 Constitutional: as per hpi dr5 Exam: 09:41 Constitutional: This is a well developed, well nourished patient who is awake, alert, dr5 and in no acute distress. Head/Face: Normocephalic, atraumatic. Eyes: Pupils equal round and reactive to light, extra-ocular motions intact. Lids and lashes normal. Conjunctiva and sclera are non-icteric and not injected. Cornea within normal limits. Periorbital areas with no swelling, redness, or edema. ENT: Nares patent. No nasal discharge, no septal abnormalities noted. Tympanic membranes are normal and external auditory canals are clear. Oropharynx with no redness, swelling, or masses, exudates, or evidence of obstruction, uvula midline. Mucous membranes moist. Chest/axilla: Normal chest wall appearance and motion. Nontender with no deformity. No lesions are appreciated. Cardiovascular: Regular rate and rhythm with a normal S1 and S2. Normal PMI, no JVD. No pulse deficits. Respiratory: Lungs have equal breath sounds bilaterally, clear to auscultation. No rales, rhonchi or wheezes noted. No increased work of breathing, no retractions or nasal flaring. Back: No spinal tenderness. No costovertebral tenderness. Full range of motion. Skin: Warm, dry with normal turgor. Normal color with no rashes, no lesions, and no evidence of cellulitis. MS/ Extremity: Pulses equal, no cyanosis. Neurovascular intact. Full, normal range of motion. Neuro: Awake and alert, GCS 15, oriented to person, place, time, and situation. Cranial nerves II-XII grossly intact. Motor strength 5/5 in all extremities. Sensory grossly intact. Cerebellar exam normal. Normal gait. Vital Signs: 09:15 BP 126 / 64; Pulse 85; Resp 17; Temp 98.8; Pulse Ox 100% ; Weight 132.9 kg; Height 5 jl7 ft. 3 in. ; Pain 4/10; 09:51 BP 123 / 64; Pulse 69; Pulse Ox 97% on R/A; af3 10:34 BP 124 / 87; Pulse 74; Resp 18; Pulse Ox 98% on R/A; af3 11:30 BP 134 / 74; Pulse 81; Resp 18; Pulse Ox 100% on R/A; ph 12:20 BP 132 / 67; Pulse 84; Resp 18; Pulse Ox 100% on R/A; ph 09:15 Body Mass Index 51.90 (132.90 kg, 160.02 cm) 7 09:15 Pain Scale: Adult jl7 MDM: 09:10 Medical Screening Exam initiated dr5 13:20 Differential diagnosis: viral Infection, bacterial infection, URI, UTI, Pulmonary dr5 embolism, elevated troponin, STEMI, NSTEMI, pancreatitis, electrolyte abnormality, pneumonia. Data reviewed: vital signs, nurses notes, lab test result(s), amylase and lipase, cardiac enzymes, troponin i, CBC, white blood cell count, hemoglobin, hematocrit, platelets, electrolytes, sodium, potassium, chloride, serum bicarbonate, BUN, creatinine, serum glucose, urinalysis, EKG, radiologic studies, CT scan, plain films. Consideration of Admission/Observation Escalation of care including admission/observation considered. Admission considered patient found to have elevated troponin or PE. Management of patient was discussed with the following: Primary Care Provider: Dr. Marquis (recommended patient follow-up with him in his office and be discharged). I considered the following discharge prescriptions or medication management in the emergency department I discussed and recommended Over The Counter medications, Medications were administered in the Emergency Department. See MAR. Independent interpretation of the following test(s) in the Emergency Department X-Ray: My interpretation is Independent termination of x-ray does not reveal pneumonia. Care significantly affected by the following chronic conditions: Anxiety, Chronic Back Pain, Depression, HTN, Hypothyroidism. Care significantly affected by the following Social Determinants of Health: Poor access to healthcare and/or lack of insurance, Poor access to transportation, Problems related to employment. Counseling: I had a detailed discussion with the patient and/or guardian regarding the historical points, exam findings, and any diagnostic results supporting the discharge/admit diagnosis, the presence of at least one elevated blood pressure reading (>120/80) during this emergency department visit, lab results, radiology results, the need for outpatient follow up, for definitive care, [place], to return to the emergency department if symptoms worsen or persist or if there are any questions or concerns that arise at home. Medication response: morphine relieved the patient's pain. Symptoms have resolved, Zofran relieved the patient's nausea. Response to treatment: the patient's symptoms have markedly improved after treatment. Special discussion: Based on the patient's history, exam, and Dx evaluation, there is no indication for emergent intervention or inpatient Tx. It is understood by the patient/guardian that if the Sx's persist or worsen they need to return immediately for re-evaluation. Based on the patient's Hx, exam, and Dx evaluation, there is no indication for emergent surgery or inpatient Tx. It is understood by the patient/guardian that if the Sx's persist or worsen they need to return immediately for re-evaluation. I discussed with the patient/guardian in detail that at this point there is no indication for admission to the hospital. It is understood, however, that if the symptoms persist or worsen the patient needs to return immediately for re-evaluation. Based on the history and exam findings, there is no indication for further emergent testing or inpatient evaluation. I discussed with the patient/guardian the need to see the primary care provider for further evaluation of the symptoms. ED course: Patient reports he is much better. Discussed with Dr. Marquis who reports he is safe for discharge. Patient reports he is so much better. I plan all labs, CT, chest x-ray, and ultrasound showing DVT for her to take with her. All questions answered. Strict ER precautions given. 05/25 09:16 Order name: Basic Metabolic Panel; Complete Time: : [facility] 05/25 09:16 Order name: CBC with Diff; Complete Time: : [facility] 05/25 09:16 Order name: LFT's; Complete Time: : [facility] 05/25 09:16 Order name: Magnesium; Complete Time: : [facility] 05/25 09:16 Order name: NT PRO-BNP; Complete Time: :05/25 09:16 Order name: PT-INR; Complete Time: 10:03 05/25 09:16 Order name: Troponin HS; Complete Time: : [facility] 05/25 09:16 Order name: Lipase; Complete Time: : [facility] 05/25 09:18 Order name: Test, Serum; Complete Time: 10: [facility] 05/25 09:16 Order name: XRAY Chest (1 view); Complete Time: 12:10 [facility] 05/25 09:16 Order name: CT Chest For PE Angio; Complete Time: 12:10 [facility] 05/25 09:20 Order name: CT Abd/Pelvis - IV Contrast Only; Complete Time: 11:54 [facility] 05/25 09:16 Order name: Cardiac monitoring; Complete Time: : [facility] 05/25 09:16 Order name: EKG - Nurse/Tech; Complete Time: : [facility] 05/25 09:16 Order name: IV Saline Lock; Complete Time: : [facility] 05/25 09:16 Order name: Labs collected and sent; Complete Time: : [facility] 05/25 09:16 Order name: O2 Per Protocol; Complete Time: : [facility] 05/25 09:16 Order name: O2 Sat Monitoring; Complete Time: : [facility] EC:20 Rate is 82 beats/min. Rhythm is regular. QRS [place] is Normal. [place] interval is normal at dr5 168 msec. QRS interval is normal at 80 msec. QT interval is normal at 370 msec. Clinical impression: Normal ECG, Abnormal EKG without significant change, and No evidence of ischemia. Administered Medications: 09:51 Drug: NS 0.9% IV 1000 ml IV at 1000 ml once; to be given as a bolus over 60 minutes af3 Route: IV; Rate: 1000 ml; Site: left antecubital; 10:30 Follow up: Response: No adverse reaction; IV Status: Completed infusion; IV Intake: ph 1000ml 10:33 Drug: morphine IVP or IV 4 mg IVP once over 4 mins Route: IVP; Infused Over: 4 mins; af3 Site: left antecubital; 11:00 Follow up: Response: No adverse reaction; Pain is decreased; RASS: Alert and Calm (0) ph 10:33 Drug: Ondansetron IVP 4 mg IVP once; over 2 minutes Route: IVP; Site: left antecubital; af3 11:00 Follow up: Response: No adverse reaction ph Disposition Summary: 05/25/25 12:21 Discharge Ordered Notes: Location: Home dr5 Condition: Stable dr5 Diagnosis - Acute embolism and thrombosis of unspecified deep veins of left lower extremity dr5 Followup: dr5 - With: Emergency Department - When: As needed - Reason: Worsening of condition Followup: dr5 - With: Private Physician - When: 1 - 2 days - Reason: Recheck today's complaints, Continuance of care, Re-evaluation by your physician Discharge Instructions: - Discharge Summary Sheet dr5 - Deep Vein Thrombosis dr5 Forms: - Medication Reconciliation Form dr5 - Patient Portal Instructions dr5 - Leadership Thank You Letter dr5 Prescriptions: - Zanaflex 4 mg Oral Tablet - take 2 tablets ORAL route every 8 hours As needed; 30 tablet; Refills: 0, dr5 Product Selection Permitted Signatures: Dispatcher [employer] EDMS Ace Tejada MD MD cha Leal, Jahala RN RN jl7 Sarah Figueroa RN RN af3 Faisal Weir, BUSINESS SUPPORT ASSISTANT-C BUSINESS SUPPORT ASSISTANT-Cdr5 Karey Thompson RN ph Corrections: (The following items were deleted from the chart) 09:17 09:17 BASIC METABOLIC PANEL+C.LAB.BRZ ordered. EDNJ EDMS 09:17 09:17 CBC+H.LAB.BRZ ordered. EDMS EDMS : 09:17 HEPATIC FUNCTION+C.LAB.BRZ ordered. EDMS EDMS : 09:17 MAGNESIUM+C.LAB.BRZ ordered. EDMS EDMS : 09:17 PROBNP+C.LAB.BRZ ordered. EDMS EDMS : 09:17 PROTIME (+INR)+COAG.LAB.BRZ ordered. EDMS EDMS : 09:17 Troponin High Sensitivity+C.LAB.BRZ ordered. EDMS EDMS : 09:17 LIPASE+C.LAB.BRZ ordered. EDMS EDMS : 09:17 Chest Single View+RAD.RAD.BRZ ordered. EDMS EDMS : 09:17 Chest For PE Angio+CT.RAD.BRZ ordered. EDMS EDMS
[2025-05-25 15:52] VITALS: TEMP 98.8
[2025-05-25 16:05] VITALS: O2SAT 100
[2025-05-25 16:07] VITALS: BP 132/67
== END 2025-05-25 12:54 | disposition home or self-care (01) ==
LOC: ER 09:01
DX: I82.402 Acute embolism and thrombosis of unspecified deep veins of left lower extremity (principal)
CPT/HCPCS: 85025; 80048; 36415; 83735; 84703; 85610; 80076; 84484; 83690; 83880; 71275; 74177; 71045; Q9967; J2405; J7030; 93005